=== PATIENT | female | born 1960 | race Caucasian/White ===

== ENCOUNTER 2017-03-06 19:56 | Inpatient (IN) | payer BC ==
[2017-03-06 22:28] LABS: Band 19 % (5-11); Hemoglobin 14.9 g/dL (12.0-16.0); Lymphocytes 2 % (21-51); MDiff Complete? YES; Mean Corpuscular HGB CONC 32.5 g/dL (32.0-36.0); Mean Platelet Volume 8.3 fL (7.4-10.4); Monocytes 1 % (0-10); Neutrophil 78 % (42-75); PLT Morphology Comment Appears Adequate; Platelet Count 230 thou/uL (130-400); RBC Distribution Width 11.9 % (11.5-14.5); Red Blood Cell (RBC) Count 4.38 mill/uL (4.20-5.40); White Blood Cell (WBC) Count 14.3 thou/uL (4.8-10.8)
[2017-03-06 22:31] LABS: ALT (SGPT) 30 U/L (8-55); AST (SGOT) 50 U/L (5-34); Albumin 4.2 g/dL (3.5-5.0); Alkaline Phosphatase 68 U/L (40-150); Anion Gap 15 mmol/L (10-20); BUN (Urea Nitrogen) 11 mg/dL (9.8-20.1); Bilirubin, Total 0.6 mg/dL (0.2-1.2); Calc. Creatinine Clearance 0 mL/min (70-130); Calcium 9.8 mg/dL (7.8-10.44); Carbon Dioxide 29 mmol/L (22-29); Chloride 96 mmol/L (98-107); Estimated GFR-MDRD 77; Globulin 3.6 g/dL (2.4-3.5); Glucose 163 mg/dL (70-105); Potassium 3.9 mmol/L (3.5-5.1); Protein, Total 7.8 g/dL (6.0-8.3); Sodium 136 mmol/L (136-145)
[2017-03-06] MEDS ORDERED: Albuterol Sulfate 2.5 mg/3 ml Neb NEB PRN (23:44)
[2017-03-06] MEDS ORDERED: Acetaminophen 325 MG TAB PO PRN (23:44)
[2017-03-07 00:06] VITALS: BMI 35.6
[2017-03-07] MEDS: Albuterol Sulfate 2.5 mg/3 ml Neb NEB SCH ×2 (02:11→08:39)
[2017-03-07] MEDS ORDERED: Benzonatate 100 MG CAP PO PRN (04:23)
[2017-03-07] MEDS ORDERED: Bisacodyl 5 MG TAB PO PRN (09:12)
[2017-03-07] MEDS ORDERED: Ondansetron ODT 4 MG TAB PO PRN (09:12)
[2017-03-07] MEDS ORDERED: Guaifenesin DM 100-10/5 ML UDCUP PO PRN (09:12)
[2017-03-07] MEDS ORDERED: Senokot 8.6 MG TAB PO PRN (09:12)
[2017-03-07] MEDS ORDERED: Ondansetron HCl/PF 4 MG/2 ML Vial IVP PRN (09:12)
[2017-03-07] MEDS ORDERED: Sodium Chloride 0.9% 1,000 ML IV SCH (09:15)
[2017-03-07] MEDS ORDERED: Oseltamivir 75 MG CAP PO SCH (11:30)
[2017-03-07 14:08] LABS: Lactic Acid 2.2 mmol/L (0.5-2.2)
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
[2017-03-07 17:09] LABS: Bilirubin Negative (Negative); Blood, Urine Trace (Negative); Clarity CLEAR (Clear); Glucose, Urine (Dipstick) Negative (Negative); Leukocyte Small (Negative); Nitrite Negative (Negative); Protein, Urine (Dipstick) Negative (Neg-Trace); Specific Gravity, Urine 1.016 (1.002-1.036)
[2017-03-07 17:11] LABS: Bacteria/HPF None Seen HPF (None Seen); Hyaline Casts/LPF 0-3 HYALINE CAST LPF (0-3 Hyaline); RBC/HPF 0-3 HPF (0-3); Squamous Epithelial 0-3 HPF (0-3)
[2017-03-07 17:24] LABS: Strep pneumo Urine Ag NEGATIVE (NEGATIVE)
[2017-03-07] MEDS: Mometasone/Formoterol 120 PUFF INHALER INH SCH (20:42)
[2017-03-07] MEDS ORDERED: Non-Formulary Item 1 EACH (Budesonide-Formoterol [Symbicort 160-4.5] 2 PUFF) INH SCH (21:00)
[2017-03-07] MEDS: Atorvastatin Calcium 10 MG TAB PO SCH (21:37)
[2017-03-07] MEDS: guaiFENesin ER 600 MG TAB PO SCH (21:37)
[2017-03-07] MEDS: Oseltamivir 75 MG CAP PO SCH (21:37)
[2017-03-07] MEDS: Famotidine/PF 20 mg/2ml Vial SLOW IVP SCH (21:38)
[2017-03-08 04:30] LABS: #Eosinphils 0.1 thou/uL (0.0-0.7); #Lymphocytes 1.9 thou/uL (1.20-3.40); #Monocytes 0.8 thou/uL (0.11-0.59); #Neutrophils 6.3 thou/uL (1.40-6.50); %Basophils 0.5 % (0.0-1.0); %Eosinophils 1.1 % (0.0-10.0); %Lymphocytes 20.7 % (21.0-51.0); %Monocytes 8.5 % (0.0-10.0); %Neutrophils 69.2 % (42.0-75.0); Hemoglobin 14.6 g/dL (12.0-16.0); Mean Corpuscular HGB CONC 31.3 g/dL (32.0-36.0); Mean Corpuscular Hemoglobin 33.3 pg (27.0-31.0); Mean Platelet Volume 8.9 fL (7.4-10.4); Platelet Count 233 thou/uL (130-400); RBC Distribution Width 11.8 % (11.5-14.5); Red Blood Cell (RBC) Count 4.39 mill/uL (4.20-5.40); White Blood Cell (WBC) Count 9.1 thou/uL (4.8-10.8)
[2017-03-08 04:54] LABS: Anion Gap 11 mmol/L (10-20); BUN (Urea Nitrogen) 11 mg/dL (9.8-20.1); Calc. Creatinine Clearance 111 mL/min (70-130); Calcium 9.4 mg/dL (7.8-10.44); Carbon Dioxide 36 mmol/L (22-29); Chloride 96 mmol/L (98-107); Estimated GFR-MDRD 77; Glucose 112 mg/dL (70-105); Potassium 4.1 mmol/L (3.5-5.1); Sodium 139 mmol/L (136-145)
[2017-03-08] MEDS: Levothyroxine Sodium 112 MCG TAB PO SCH (05:53)
[2017-03-08] MEDS: Mometasone/Formoterol 120 PUFF INHALER INH SCH ×2 (07:21→18:52)
[2017-03-08] MEDS: FLUoxetine HCl 20 MG CAP PO SCH (08:33)
[2017-03-08] MEDS: Enoxaparin Sodium 40 MG/0.4 ML SYRINGE SC SCH (08:34)
[2017-03-08] MEDS: guaiFENesin ER 600 MG TAB PO SCH ×2 (08:34→20:09)
[2017-03-08] MEDS: Famotidine/PF 20 mg/2ml Vial SLOW IVP SCH ×2 (08:34→20:10)
[2017-03-08] MEDS: buPROPion HCl 100 MG TAB PO SCH (09:17)
[2017-03-08] MEDS: Oseltamivir 75 MG CAP PO SCH ×2 (09:17→20:09)
--- NOTE | 2017-03-08 10:07 | PDOC.PN ---
- Subjective Encounter Start Date: 03/08/17 Encounter Start Time: 09:30 Patient is seen today, alert and oriented. No other concern snoted. She is congested but feels is getting better, She is still on Nasal canula. increased cough overnight. - Objective Resuscitation Status: Resuscitation Status FULL:Full Resuscitation MAR Reviewed: Yes Vital Signs & Weight: Vital Signs (12 hours) Temp Pulse Resp BP Pulse Ox 03/08/17 07:32 98.6 F 68 18 114/61 90 L 03/08/17 07:21 79 16 92 L 03/08/17 04:00 98.8 F 81 20 125/67 95 03/08/17 00:00 98.6 F 84 20 134/71 91 L Weight Weight 195 lb I&O: 03/07/17 03/08/17 03/09/17 06:59 06:59 06:59 Intake Total 600 480 Balance 600 480 Result Diagrams: 03/08/17 04:05 03/08/17 04:05 Phys Exam - Physical Examination HEENT: PERRLA, oral pharynx no lesions Neck: no nodes, no JVD Respiratory: wheezing present (severe broncoconstrition noted, reduced air entry.) Cardiovascular: RRR, no significant murmur Gastrointestinal: soft, non-tender Musculoskeletal: no edema, pulses present Neurological: non-focal, normal sensation Lymphatic: no nodes Psychiatric: normal affect, A&O x 3 Skin: no rash, normal turgor Dx/Plan (1) Acute respiratory failure with hypoxia Code(s): J96.01 - ACUTE RESPIRATORY FAILURE WITH HYPOXIA Status: Acute Plan: COntinue with NC, will wean off oxygen as tolereted will keep Sats>92%, Will closley Monitor for any decompensation. (2) Acute exacerbation of chronic obstructive pulmonary disease (COPD) Code(s): J44.1 - CHRONIC OBSTRUCTIVE PULMONARY DISEASE W (ACUTE) EXACERBATION Status: Acute Plan: Patient is on IV Levofloxacin, Continous Neb treatment with Duonebs and PRN albuteral, Will continue with Mucinex, pt unable to cough up much, will do Acapella q 6hrs through RT. Will need to start her on Solumedrol 40mg q 6hr for severe broncoconstruition from COPD worsening,. (3) Sepsis Code(s): A41.9 - SEPSIS, UNSPECIFIED ORGANISM Status: Acute Qualifiers: Sepsis type: sepsis due to unspecified organism Qualified Code(s): A41.9 - Sepsis, unspecified organism Plan: Laly is on IV antibiotics and on Tamiflu for influeneza infection. Sepsis is improving with above management. (4) Acute UTI Code(s): N39.0 - URINARY TRACT INFECTION, SITE NOT SPECIFIED Status: Acute Plan: Urine culture pending, patient is on levofloxacin for emperic pneumonia, will continue to monitor and wait for culture results. No pyelonephritis. (5) Hypertension Code(s): I10 - ESSENTIAL (PRIMARY) HYPERTENSION Status: Acute Qualifiers: Hypertension type: essential hypertension Qualified Code(s): I10 - Essential (primary) hypertension Plan: [place], Continue to Monitor, continue home MEds. (6) Hypothyroidism Code(s): E03.9 - HYPOTHYROIDISM, UNSPECIFIED Status: Acute Qualifiers: Hypothyroidism type: acquired Qualified Code(s): E03.9 - Hypothyroidism, unspecified Plan: Continue home meds. [place]. - Plan cont current plan of care, continue antibiotics, PT/OT, respiratory therapy, incentive spirometry, out of bed/ambulate, DVT proph w/lovenox * . Review of Systems - Review of Systems Constitutional: weakness. negative: fever, chills, sweats, malaise, other Eyes: negative: Pain, Vision Change, Conjunctivae Inflammation, Eyelid Inflammation, Redness, Other ENT: negative: Ear Pain, Ear Discharge, Nose Pain, Nose Discharge, Nose Congestion, Mouth Pain, Mouth Swelling, Throat Pain, Throat Swelling, Other Respiratory: Cough, Shortness of Breath, SOB with Excertion, Wheezing Cardiovascular: negative: chest pain, palpitations, orthopnea, paroxysmal nocturnal dyspnea, edema, light headedness, other Gastrointestinal: negative: Nausea, Vomiting, Abdominal Pain, Diarrhea, Constipation, Melena, Hematochezia, Other Genitourinary: negative: Dysuria, Frequency, Incontinence, Hematuria, Retention , Other Musculoskeletal: Neck Pain, Shoulder Pain, Arm Pain, Back Pain, Leg Pain, Other Skin: negative: Rash, Lesions, Jim, Bruising, Other Neurological: Weakness. negative: Numbness, Incoordination, Change in Speech, Confusion, Seizures, Other - Medications/Allergies Allergies/Adverse Reactions: Allergies Allergy/AdvReac Type Severity Reaction Status Date / Time aspirin Allergy Verified 03/07/17 00:32 codeine Allergy Verified 03/07/17 00:32 Medications: Current Medications Hydrocodone Bitart/Acetaminophen ([place] 5/325) 1 tab PO Q4H PRN PRN Reason: Moderate Pain (4-6) Albuterol/Ipratropium (Duoneb) 3 ml NEB [id number] PRN PRN Reason: SOB &/or Wheezing Last Admin: 03/07/17 20:43 Dose: 3 ml Aspirin (Aspirin Chewable) 81 mg PO DAILY [facility] Last Admin: 03/08/17 08:33 Dose: 81 mg Atorvastatin Calcium (Lipitor) 10 mg PO HS [facility] Last Admin: 03/07/17 21:37 Dose: 10 mg Benzonatate (Tessalon) 200 mg PO Q4H PRN PRN Reason: Cough Last Admin: 03/07/17 11:51 Dose: 200 mg Bisacodyl (Dulcolax) 10 mg PO DAILYPRN PRN PRN Reason: Constipation Bupropion HCl (Wellbutrin) 100 mg PO DAILY [facility] Last Admin: 03/08/17 09:17 Dose: 100 mg Enoxaparin Sodium (Lovenox) 40 mg SC 0900 [facility] Last Admin: 03/08/17 08:34 Dose: 40 mg Famotidine (Pepcid) 20 mg SLOW IVP Q12HR [facility] Last Admin: 03/08/17 08:34 Dose: 20 mg Fluoxetine HCl (Prozac) 40 mg PO DAILY [facility] Last Admin: 03/08/17 08:33 Dose: 40 mg Guaifenesin (Mucinex) 1,200 mg PO Q12HR [facility] Last Admin: 03/08/17 08:34 Dose: 1,200 mg Guaifenesin/Dextromethorphan (Robitussin Dm) 15 ml PO Q4H PRN PRN Reason: Cough Levofloxacin 750 mg/ Device 150 mls @ 100 mls/hr IVPB 1000 [facility] Last Admin: 03/08/17 08:33 Dose: 150 mls Sodium Chloride (Normal Saline 0.9%) 1,000 mls @ 0 mls/hr IV .Q0M [facility] PRN Reason: As Directed Levothyroxine Sodium (Synthroid) 112 mcg PO 0600 [facility] Last Admin: 03/08/17 05:53 Dose: 112 mcg Methylprednisolone Sodium Succinate (Solu-Medrol) 40 mg IVP Q6HR [facility] Mometasone Furoate/Formoterol Fumar (Dulera 200 Mcg/5 Mcg Inhaler) 2 puff INH BID-RT [facility] Last Admin: 03/08/17 07:21 Dose: 2 puff Ondansetron HCl (Zofran Odt) 4 mg PO Q6H PRN PRN Reason: Nausea/Vomiting Ondansetron HCl (Zofran) 4 mg IVP Q6H PRN PRN Reason: Nausea/Vomiting Oseltamivir Phosphate (Tamiflu) 75 mg PO BID [facility] Stop: 03/12/17 09:01 Last Admin: 03/08/17 09:17 Dose: 75 mg Senna (Senokot) 2 tab PO HSPRN PRN PRN Reason: Constipation Sodium Chloride (Flush - Normal Saline) 10 ml IVF Q12HR [facility] Last Admin: 03/08/17 08:34 Dose: 10 ml Sodium Chloride (Flush - Normal Saline) 10 ml IVF PRN PRN PRN Reason: Saline Flush
[2017-03-08] MEDS: HYDROcodone/Acetaminophen 5/325 mg Tablet PO PRN (17:14)
[2017-03-08] MEDS: Atorvastatin Calcium 10 MG TAB PO SCH (20:09)
[2017-03-09 05:11] LABS: #Lymphocytes 0.9 thou/uL (1.20-3.40); #Monocytes 0.3 thou/uL (0.11-0.59); #Neutrophils 9.4 thou/uL (1.40-6.50); %Eosinophils 0.2 % (0.0-10.0); %Lymphocytes 8.7 % (21.0-51.0); %Monocytes 2.6 % (0.0-10.0); %Neutrophils 88.4 % (42.0-75.0); Hemoglobin 14.1 g/dL (12.0-16.0); Mean Corpuscular HGB CONC 30.7 g/dL (32.0-36.0); Mean Corpuscular Hemoglobin 32.6 pg (27.0-31.0); Mean Platelet Volume 8.8 fL (7.4-10.4); Platelet Count 271 thou/uL (130-400); RBC Distribution Width 11.6 % (11.5-14.5); Red Blood Cell (RBC) Count 4.32 mill/uL (4.20-5.40); White Blood Cell (WBC) Count 10.6 thou/uL (4.8-10.8)
[2017-03-09 05:21] LABS: Anion Gap 13 mmol/L (10-20); BUN (Urea Nitrogen) 10 mg/dL (9.8-20.1); Calc. Creatinine Clearance 116 mL/min (70-130); Calcium 9.7 mg/dL (7.8-10.44); Carbon Dioxide 34 mmol/L (22-29); Chloride 96 mmol/L (98-107); Estimated GFR-MDRD 81; Glucose 232 mg/dL (70-105); Potassium 4.3 mmol/L (3.5-5.1); Sodium 139 mmol/L (136-145)
[2017-03-09] MEDS: Levothyroxine Sodium 112 MCG TAB PO SCH (05:45)
[2017-03-09] MEDS: Mometasone/Formoterol 120 PUFF INHALER INH SCH ×2 (07:27→19:03)
[2017-03-09] MEDS: guaiFENesin ER 600 MG TAB PO SCH ×2 (08:09→20:17)
[2017-03-09] MEDS: HYDROcodone/Acetaminophen 5/325 mg Tablet PO PRN (08:09)
[2017-03-09] MEDS: FLUoxetine HCl 20 MG CAP PO SCH (08:09)
[2017-03-09] MEDS: Enoxaparin Sodium 40 MG/0.4 ML SYRINGE SC SCH (08:10)
[2017-03-09] MEDS: Famotidine/PF 20 mg/2ml Vial SLOW IVP SCH ×2 (08:10→20:17)
[2017-03-09] MEDS: buPROPion HCl 100 MG TAB PO SCH (10:07)
[2017-03-09] MEDS: Oseltamivir 75 MG CAP PO SCH ×2 (10:07→20:17)
--- NOTE | 2017-03-09 13:57 | PDOC.PN ---
- Subjective Encounter Start Date: 03/09/17 Encounter Start Time: 12:00 Merari is seen today, alert and oriened, She remains on oxygen today, Will try to Wean her off of it, Deneis any SOB now., - Objective Resuscitation Status: Resuscitation Status FULL:Full Resuscitation MAR Reviewed: Yes Vital Signs & Weight: Vital Signs (12 hours) Temp Pulse Resp BP Pulse Ox 03/09/17 08:00 98.0 F 73 18 03/09/17 07:41 98.0 F 73 18 117/69 90 L 03/09/17 07:27 77 16 96 Weight Weight 195 lb I&O: 03/08/17 03/09/17 03/10/17 06:59 06:59 06:59 Intake Total 600 2990 480 Balance 600 2990 480 Result Diagrams: 03/09/17 04:16 03/09/17 04:16 Radiology Reviewed by me: Yes Phys Exam - Physical Examination HEENT: PERRLA, moist MMs Neck: no nodes, no JVD Respiratory: wheezing present Cardiovascular: RRR, no significant murmur, no rub Gastrointestinal: soft, non-tender Musculoskeletal: no edema, pulses present Neurological: non-focal, normal sensation, moves all 4 limbs Psychiatric: normal affect, A&O x 3 Dx/Plan (1) Acute respiratory failure with hypoxia Code(s): J96.01 - ACUTE RESPIRATORY FAILURE WITH HYPOXIA Status: Acute (2) Acute exacerbation of chronic obstructive pulmonary disease (COPD) Code(s): J44.1 - CHRONIC OBSTRUCTIVE PULMONARY DISEASE W (ACUTE) EXACERBATION Status: Acute (3) Sepsis Code(s): A41.9 - SEPSIS, UNSPECIFIED ORGANISM Status: Acute Qualifiers: Sepsis type: sepsis due to unspecified organism Qualified Code(s): A41.9 - Sepsis, unspecified organism (4) Acute UTI Code(s): N39.0 - URINARY TRACT INFECTION, SITE NOT SPECIFIED Status: Acute (5) Hypertension Code(s): I10 - ESSENTIAL (PRIMARY) HYPERTENSION Status: Acute Qualifiers: Hypertension type: essential hypertension Qualified Code(s): I10 - Essential (primary) hypertension (6) Hypothyroidism Code(s): E03.9 - HYPOTHYROIDISM, UNSPECIFIED Status: Acute Qualifiers: Hypothyroidism type: acquired Qualified Code(s): E03.9 - Hypothyroidism, unspecified - Plan * . 1.Acute COPD exacerbation: 2. Acute hypoxic Resp Failure 3.Acute UTI 4. Hypertension 5. Hyperlipidemia 6. Influenza A Plan: 1. Will continue with NEb treatment Duonebs and Albuteral, Pt is Improving with Acapella, will continue. Started non IV Steroids, Will change to PO. 2. Pt remains on oxygen, will need to asses for home oxygen if unable TO Wean Off. 3. Waiting on Cultures for UTI, continue on Antibitoiics 4. Continue on Tamiflu for 5 days. 5. Blood pressures well controlled and at goal. DVT prophylaxis with lovenox. - Discharge Day Encounter end time: 12:30 Review of Systems - Review of Systems Constitutional: weakness Eyes: negative: Pain, Vision Change, Conjunctivae Inflammation, Eyelid Inflammation, Redness, Other ENT: negative: Ear Pain, Ear Discharge, Nose Pain, Nose Discharge, Nose Congestion, Mouth Pain, Mouth Swelling, Throat Pain, Throat Swelling, Other Respiratory: Cough, Shortness of Breath, SOB with Excertion Cardiovascular: negative: chest pain, palpitations, orthopnea, paroxysmal nocturnal dyspnea, edema, light headedness, other Gastrointestinal: negative: Nausea, Vomiting, Abdominal Pain, Diarrhea, Constipation, Melena, Hematochezia, Other Genitourinary: negative: Dysuria, Frequency, Incontinence, Hematuria, Retention , Other Musculoskeletal: negative: Neck Pain, Shoulder Pain, Arm Pain, Back Pain, Hand Pain, Leg Pain, Foot Pain, Other Skin: negative: Rash, Lesions, Jim, Bruising, Other Neurological: Weakness. negative: Numbness, Incoordination, Change in Speech, Confusion, Seizures, Other - Medications/Allergies Allergies/Adverse Reactions: Allergies Allergy/AdvReac Type Severity Reaction Status Date / Time aspirin Allergy Verified 03/07/17 00:32 codeine Allergy Verified 03/07/17 00:32 Medications: Current Medications Hydrocodone Bitart/Acetaminophen ([place] 5/325) 1 tab PO Q4H PRN PRN Reason: Moderate Pain (4-6) Last Admin: 03/09/17 08:09 Dose: 1 tab Albuterol/Ipratropium (Duoneb) 3 ml NEB [id number] PRN PRN Reason: SOB &/or Wheezing Last Admin: 03/08/17 13:30 Dose: 3 ml Aspirin (Aspirin Chewable) 81 mg PO DAILY [facility] Last Admin: 03/09/17 08:10 Dose: 81 mg Atorvastatin Calcium (Lipitor) 10 mg PO HS [facility] Last Admin: 03/08/17 20:09 Dose: 10 mg Benzonatate (Tessalon) 200 mg PO Q4H PRN PRN Reason: Cough Last Admin: 03/07/17 11:51 Dose: 200 mg Bisacodyl (Dulcolax) 10 mg PO DAILYPRN PRN PRN Reason: Constipation Bupropion HCl (Wellbutrin) 100 mg PO DAILY [facility] Last Admin: 03/09/17 10:07 Dose: 100 mg Enoxaparin Sodium (Lovenox) 40 mg SC 0900 [facility] Last Admin: 03/09/17 08:10 Dose: 40 mg Famotidine (Pepcid) 20 mg SLOW IVP Q12HR [facility] Last Admin: 03/09/17 08:10 Dose: 20 mg Fluoxetine HCl (Prozac) 40 mg PO DAILY [facility] Last Admin: 03/09/17 08:09 Dose: 40 mg Guaifenesin (Mucinex) 1,200 mg PO Q12HR [facility] Last Admin: 03/09/17 08:09 Dose: 1,200 mg Guaifenesin/Dextromethorphan (Robitussin Dm) 15 ml PO Q4H PRN PRN Reason: Cough Levofloxacin 750 mg/ Device 150 mls @ 100 mls/hr IVPB 1000 [facility] Last Admin: 03/09/17 08:09 Dose: 150 mls Sodium Chloride (Normal Saline 0.9%) 1,000 mls @ 0 mls/hr IV .Q0M [facility] PRN Reason: As Directed Levothyroxine Sodium (Synthroid) 112 mcg PO 0600 [facility] Last Admin: 03/09/17 05:45 Dose: 112 mcg Methylprednisolone Sodium Succinate (Solu-Medrol) 40 mg IVP Q6HR [facility] Last Admin: 03/09/17 13:21 Dose: 40 mg Mometasone Furoate/Formoterol Fumar (Dulera 200 Mcg/5 Mcg Inhaler) 2 puff INH BID-RT [facility] Last Admin: 03/09/17 07:27 Dose: 2 puff Ondansetron HCl (Zofran Odt) 4 mg PO Q6H PRN PRN Reason: Nausea/Vomiting Ondansetron HCl (Zofran) 4 mg IVP Q6H PRN PRN Reason: Nausea/Vomiting Oseltamivir Phosphate (Tamiflu) 75 mg PO BID [facility] Stop: 03/12/17 09:01 Last Admin: 03/09/17 10:07 Dose: 75 mg Senna (Senokot) 2 tab PO HSPRN PRN PRN Reason: Constipation Sodium Chloride (Flush - Normal Saline) 10 ml IVF Q12HR [facility] Last Admin: 03/09/17 08:10 Dose: 10 ml Sodium Chloride (Flush - Normal Saline) 10 ml IVF PRN PRN PRN Reason: Saline Flush
[2017-03-09] MEDS: Atorvastatin Calcium 10 MG TAB PO SCH (20:17)
[2017-03-10] MEDS: HYDROcodone/Acetaminophen 5/325 mg Tablet PO PRN (00:14)
[2017-03-10] MEDS: Levothyroxine Sodium 112 MCG TAB PO SCH (06:05)
[2017-03-10 08:54] VITALS: BP 136/68; TEMP 98.3
[2017-03-10] MEDS: Famotidine/PF 20 mg/2ml Vial SLOW IVP SCH (09:21)
[2017-03-10] MEDS: Oseltamivir 75 MG CAP PO SCH (09:22)
[2017-03-10] MEDS: buPROPion HCl 100 MG TAB PO SCH (09:22)
[2017-03-10] MEDS: FLUoxetine HCl 20 MG CAP PO SCH (09:22)
[2017-03-10] MEDS: Enoxaparin Sodium 40 MG/0.4 ML SYRINGE SC SCH (09:22)
[2017-03-10] MEDS: guaiFENesin ER 600 MG TAB PO SCH (09:25)
[2017-03-10] MEDS: Mometasone/Formoterol 120 PUFF INHALER INH SCH (11:16)
--- NOTE | 2017-03-10 15:03 | DIS ---
DATE OF ADMISSION: 03/07/2017 DATE OF DISCHARGE: 03/10/2017 ADMITTING DIAGNOSIS: Acute hypoxic respiratory failure. DISCHARGE DIAGNOSIS: Acute hypoxic respiratory failure. SECONDARY DIAGNOSES: 1. Acute influenza A infection. 2. Acute chronic obstructive pulmonary disease exacerbation. 3. Hypertension. 4. Hyperlipidemia. 5. Chronic low back pain. HISTORY OF PRESENT ILLNESS AND HOSPITAL COURSE: In brief, this is a 56-year-old morbidly obese white female with a known history of COPD. She came in with a complaint of shortness of breath and cough for the past 2-3 months, which progressively got worsened for the last 2 days, associated with fever and body aches. She was noted to have influenza A positive, even though she had an influenza vaccine this year. The patient became very hypoxic in the ER. Saturations were in 80% and was started on n ebulizer treatments. The patient was admitted initially for observation, but she went into sepsis wi th elevated white count, and the patient was started on IV antibiotics with levofloxacin. The patien t continues to maintain low oxygen saturations and was having severe wheezing. So, the patient was s tarted on oral IV steroids, Solu-Medrol as she was having a COPD exacerbation. The patient's respira tory symptoms slowly improved with the steroids and later it was changed to oral steroids and the pat ient was able to breathe on room air. The patient wanting to go home. She had no fever. Cough has improved. Increased mucus production. The patient does have a nebulizer at home and wanted to use n ebulizer treatments at home. I advised the patient to stay back at home away from work for at least 2-3 days until her breathing improves and she has no fever. The patient is discharged home in stable condition. PHYSICAL EXAMINATION: VITAL SIGNS: Blood pressure is 136/68, heart rate is 66, respiratory rate is 16, saturation 92% on r oom air. GENERAL: The patient is moderately built and moderately nourished, does not appear to be in any acut e distress. CARDIOVASCULAR: S1, S2 normal. No murmurs, no rubs, and no gallops. LUNGS: Bilateral air entry was equal. No wheezing, no crackles. ABDOMEN: Soft, nontender. No guarding and no rebound tenderness. Bowel sounds normal. MUSCULOSKELETAL: No calf tenderness. No pedal edema. No joint tenderness, no joint swelling. SKIN: No cyanosis, no erythema, no rash, no pallor. CRANIAL NERVOUS SYSTEM: Cranial nerve examination II-XII intact. No focal deficits were noted. DISCHARGE MEDICATIONS: 1. Albuterol sulfate. 2. Ibuprofen 800 mg daily. 3. DuoNeb nebulizer q.4 hours. 4. Aspirin 81 mg daily. 5. Budesonide 160/4.5 mg. 6. Symbicort, 2 puffs inhalation b.i.d. 7. Bupropion 100 mg p.o. daily. 8. Fluoxetine 40 mg daily. 9. Levothyroxine. 10. Pravastatin. 11. Levofloxacin 500 mg p.o. daily, continue for 5 more days. 12. Tamiflu, continue for 2 more days, 75 mg p.o. b.i.d. 13. Mucinex 1200 mg p.o. b.i.d., continue for 2 weeks. DISCHARGE INSTRUCTIONS: Continue activity as tolerated. Advised to follow up with primary care phys ician in 1 week. Advised to return back to work after 2-3 days or after no fever and after completin g Tamiflu dose. Continue with a general diet and advised to avoid smoking or any pet allergies. Adv ised the patient to return back to the ER if any worsening shortness of breath or fever. I spent 35 minutes with this patient on the day of discharge.
[2017-03-10] MEDS ORDERED: predniSONE 20 MG TAB PO SCH (21:00)
== END 2017-03-10 15:47 | disposition home or self-care (01) | DRG 871 ==
LOC: ERS 19:56 → OBSVTOIN 23:07 → 2SW 23:07 → T4-A 03-07 13:10
PROVIDERS: ADMIT Family Medicine; ATTEND Family Medicine
DX: A41.9 Sepsis, unspecified organism (principal); J96.01 Acute respiratory failure with hypoxia; J44.1 Chronic obstructive pulmonary disease with (acute) exacerbation; N39.0 Urinary tract infection, site not specified; E66.01 Morbid (severe) obesity due to excess calories; Z68.35 Body mass index [BMI] 35.0-35.9, adult; J10.1 Influenza due to other identified influenza virus with other respiratory manifestations; E78.5 Hyperlipidemia, unspecified; I10 Essential (primary) hypertension; M19.90 Unspecified osteoarthritis, unspecified site; G89.29 Other chronic pain; M54.5 Low back pain; F17.210 Nicotine dependence, cigarettes, uncomplicated; Z79.82 Long term (current) use of aspirin; Z79.51 Long term (current) use of inhaled steroids; Z88.6 Allergy status to analgesic agent; Z88.5 Allergy status to narcotic agent; E03.9 Hypothyroidism, unspecified
CPT/HCPCS: 36415; 80048; 80053; 81001; 83605; 85025; 87040; 87070; 87086; 87205; 87899; 89220; 94640; A4216; G8978-GP-CI; G8979-GP-CI; G8980-GP-CI; G8987-GO-CH; G8988-GO-CH; G8989-GO-CH; J1650; J1956; J2920; J7611; J7620; S0028

== ENCOUNTER 2018-05-02 09:55 | Inpatient (IN) | payer BC ==
[2018-05-02] MEDS ORDERED: Magnesium 2 GM/50 ML BAG (IN WATER) ONE (10:19)
[2018-05-02] MEDS ORDERED: Ondansetron PF 4 MG/2 ML Vial IVP PRN (12:06)
[2018-05-02] MEDS ORDERED: Ondansetron ODT 4 MG TAB SL PRN (12:06)
[2018-05-02 12:15] VITALS: BMI 32.2
[2018-05-02] MEDS ORDERED: Bisacodyl 5 MG TAB PO PRN (13:01)
[2018-05-02] MEDS ORDERED: Acetaminophen 325 MG TAB PO PRN (13:01)
[2018-05-02] MEDS ORDERED: Acetaminophen 650 MG Suppository PR PRN (13:01)
--- NOTE | 2018-05-02 15:07 | HP ---
PRIMARY CARE PROVIDER: Jaycob Quintero MD CHIEF COMPLAINT: Shortness of breath. HISTORY OF PRESENT ILLNESS: Ms. Hartman is a pleasant 57-year-old lady, who was seen at [facility] on May 02, 2018, following transfer from the emergency room at [place]. She reports that 1 week ago, she had nasal congestion, body aches, and headache. Three days ago, she developed shortness of breath. She reports shortness of breath with exertion. She also reports orthopnea. She also reports wheezing. She denies any fevers or chills. She denies any nausea or vomiting. She denies any abdominal pain. She presented to the emergency room at [place] because of ongoing shortness of breath. REVIEW OF SYSTEMS: All other systems reviewed and found to be negative. PAST MEDICAL HISTORY: Significant for chronic obstructive pulmonary disease, hypertension, dyslipidemia, osteoarthritis, and chronic low back pain. PAST SURGICAL HISTORY: section x3 and hysterectomy. PSYCHIATRIC HISTORY: Bipolar disorder. SOCIAL HISTORY: The patient reports that she was using E-cigarettes until a few days ago. Now she is smoking 2 or 3 cigarettes a day. She drinks 1 to 2 alcoholic drinks, either beer or [employer] on a daily basis. She denies any recreational drug use. FAMILY HISTORY: Cerebrovascular accident in her father. ALLERGIES: ASPIRIN AND CODEINE. CURRENT MEDICATIONS: 1. ProAir HFA 2 puffs every 4 hours as needed. 2. DuoNeb 3 mL every 4 hours as needed. 3. Aspirin 81 mg daily, unclear whether the patient is actually taking aspirin. 4. Symbicort 160/4.5 two puffs 2 times a day. 5. Wellbutrin 300 mg daily. 6. Prozac 40 mg daily. 7. Ibuprofen 800 mg daily. 8. Synthroid 112 mcg daily. 9. Pravastatin 40 mg at bedtime. REVIEW OF SYSTEMS: Ms. Hartman reportedly had room-air oxygen saturations in the low 80s at [place]. She reports that she was on home oxygen in the past, but is no longer on home oxygen. PHYSICAL EXAMINATION: GENERAL: Ms. Hartman is awake and alert, in mild respiratory distress. VITAL SIGNS: Blood pressure is 124/83, pulse 94, respiratory rate 22, and oxygen saturation 92% on 2 L of oxygen. She is afebrile. She is obese, with a BMI of 32.2. EYES: No scleral icterus. No conjunctival pallor. ENT: Moist mucosal membranes. No oropharyngeal erythema or exudates. NECK: Supple, nontender, and trachea is midline. RESPIRATORY: Accessory muscles of breathing are active. Chest wall movements are symmetric bilaterally. Lung examination reveals diffuse expiratory wheeze. CARDIOVASCULAR: S1 and S2 are heard, regular. Peripheral pulses palpable. No carotid bruit. No pericardial rub. ABDOMEN: Soft and nontender. Bowel sounds heard. No hepatomegaly. No splenomegaly. NEUROLOGIC: Cranial nerves 2 through 12 intact. Deep tendon reflexes 2+. MUSCULOSKELETAL: Power is 5/5 in all 4 extremities. SKIN: No rashes or subcutaneous nodules. LYMPHATIC: No cervical lymphadenopathy. PSYCHIATRIC: Normal mood. Normal affect. The patient is oriented to person, place, and time. LABORATORY DATA: Ms. Hartman's labs and investigations were reviewed. I reviewed her electrocardiogram, which shows normal sinus rhythm, no ST changes to suggest an acute coronary syndrome. I also reviewed her chest x-ray, which shows left midlung pulmonary infiltrate. She also has pulmonary vascular prominence. She has normal sodium, normal potassium, elevated carbon dioxide of 32, normal creatinine, mildly elevated AST of 41, normal ALT, normal alkaline phosphatase, normal total bilirubin. Normal troponin I. Normal white count, normal hemoglobin, and normal platelet count. D-dimer was less than 0.27. ASSESSMENT AND PLAN: Ms. Hartman is a pleasant 57-year-old lady, who was seen at [facility] on May 02, 2018. Her problem list includes: 1. Acute hypoxic respiratory failure: Ms. Hartman is presenting with acute hypoxic respiratory failure, most likely secondary to combination of pneumonia and chronic obstructive pulmonary disease exacerbation. She will be admitted to the hospital for further management. 2. Pneumonia: Likely secondary to gram-negative bacteria. She will be treated with ceftriaxone and azithromycin. We will await blood cultures. 3. Chronic obstructive pulmonary disease exacerbation: We will treat with oxygen, steroids, and bronchodilators. 4. Dyslipidemia: We will continue statin. 5. Mild depression: Stable. We will continue Prozac and Wellbutrin. 6. Tobacco abuse: The patient has been counseled regarding tobacco cessation. We will start from nicotine replacement therapy. 7. Hypothyroidism: Continue Synthroid. 8. Hypertension: Monitor vital signs and titrate antihypertensives as needed. Many thanks for allowing me to participate in your patient's care. Please feel free to contact me with any questions or concerns. LEVEL OF RISK: High. LEVEL OF COMPLEXITY: High. Job ID: [id number]
[2018-05-02] MEDS: Nicotine 7 MG PATCH TOP SCH (16:00)
[2018-05-02] MEDS: methylPREDNISolone Sod Succ 40 MG VIAL IVP SCH ×2 (18:12→23:50)
[2018-05-02] MEDS: Mometasone/Formoterol 120 PUFF INHALER INH SCH (19:12)
[2018-05-02] MEDS: FLUoxetine HCl 20 MG CAP PO SCH (20:23)
[2018-05-02] MEDS: Atorvastatin Calcium 10 MG TAB PO SCH (20:23)
[2018-05-02] MEDS: guaiFENesin/DM ER PO SCH (20:23)
[2018-05-02] MEDS: Bupropion 150 MG XL TAB PO SCH (20:24)
[2018-05-02] MEDS ORDERED: Ketorolac Tromethamine 30 MG/ML VIAL IVP SCH (20:30)
[2018-05-02] MEDS: Melatonin 3 MG TAB PO PRN (23:28)
[2018-05-03] MEDS: Levothyroxine Sodium 112 MCG TAB PO SCH (05:20)
[2018-05-03] MEDS: methylPREDNISolone Sod Succ 40 MG VIAL IVP SCH ×4 (05:20→23:03)
[2018-05-03 07:13] LABS: Hemoglobin 14.6 g/dL (12.0-16.0); Mean Corpuscular HGB CONC 29.9 g/dL (32.0-36.0); Mean Corpuscular Hemoglobin 31.7 pg (27.0-31.0); Mean Platelet Volume 9.1 fL (7.4-10.4); Platelet Count 201 thou/uL (130-400); RBC Distribution Width 12.9 % (11.5-14.5); Red Blood Cell (RBC) Count 4.62 mill/uL (4.20-5.40); White Blood Cell (WBC) Count 7.5 thou/uL (4.8-10.8)
[2018-05-03 07:20] LABS: Anion Gap 15 mmol/L (10-20); BUN (Urea Nitrogen) 9 mg/dL (9.8-20.1); Calc. Creatinine Clearance 118 mL/min (70-130); Calcium 9.2 mg/dL (7.8-10.44); Carbon Dioxide 30 mmol/L (22-29); Chloride 98 mmol/L (98-107); Estimated GFR-MDRD Greater than 90; Glucose 190 mg/dL (70-105); Potassium 4.7 mmol/L (3.5-5.1); Sodium 138 mmol/L (136-145)
[2018-05-03] MEDS: Mometasone/Formoterol 120 PUFF INHALER INH SCH ×2 (07:23→19:20)
[2018-05-03] MEDS: Enoxaparin Sodium 40 MG/0.4 ML SYRINGE SC SCH (08:10)
[2018-05-03] MEDS: cefTRIAXone\\ROCEPHIN 1 GM in Sodium Chloride 0.9% 100 ML IVPB SCH (08:10)
[2018-05-03] MEDS: guaiFENesin/DM ER PO SCH (08:10)
[2018-05-03 09:00] LABS: #Basophils 0.1 thou/uL (0.0-0.2); #Lymphocytes 0.4 thou/uL (1.20-3.40); #Monocytes 0.3 thou/uL (0.11-0.59); #Neutrophils 6.7 thou/uL (1.40-6.50); %Basophils 1.9 % (0.0-1.0); %Eosinophils 0.1 % (0.0-10.0); %Lymphocytes 5.4 % (21.0-51.0); %Monocytes 3.7 % (0.0-10.0); %Neutrophils 88.9 % (42.0-75.0); MDiff Complete? YES; Macrocytosis SLIGHT = 6-15 cells (100X) (0-5/hpf); Microcytosis SLIGHT = 6-15 cells (100X) (0-5/hpf); Ovalocytes MODERATE= 6-15 cells (100X) (0-1/hpf); Polychromasia SLIGHT = 2-3 cells (100X) (0-2/hpf)
[2018-05-03] MEDS ORDERED: Aspirin Chewable 81 MG TAB PO SCH (09:00)
[2018-05-03] MEDS ORDERED: Bupropion 150 MG XL TAB PO SCH (09:00)
[2018-05-03] MEDS ORDERED: FLUoxetine HCl 20 MG CAP PO SCH (09:00)
[2018-05-03] MEDS: Azithromycin 500 MG in Sodium Chloride 0.9% 250 ML 250 ML IVPB SCH (09:20)
--- NOTE | 2018-05-03 10:39 | PDOC.PN ---
- Subjective Encounter Start Date: 05/03/18 Encounter Start Time: 08:40 Pt seen for followup re; acute hypoxic respiratory failure. c/o cough. SOBOE is better. Not much sputum. - Objective MAR Reviewed: Yes Vital Signs & Weight: Vital Signs (12 hours) Temp Pulse Resp BP Pulse Ox 05/03/18 08:00 93 L 05/03/18 07:35 97.9 F 85 18 130/74 93 L 05/03/18 07:25 92 L 05/03/18 07:23 81 22 H 92 L 05/03/18 07:18 81 16 89 L 05/03/18 04:00 98.4 F 84 16 119/72 94 L 05/02/18 23:33 97.0 F L 94 20 146/80 H 96 05/02/18 23:27 96 16 93 L Weight Weight 176 lb 2 oz I&O: 05/02/18 05/03/18 05/04/18 06:59 06:59 06:59 Intake Total 1200 Balance 1200 Result Diagrams: 05/03/18 06:00 05/03/18 06:00 Additional Labs: labs reviewed by me Phys Exam - Physical Examination Obese HEENT: moist MMs, sclera anicteric, oral pharynx no lesions, 2+ tonsils Neck: no nodes, no JVD, supple, full ROM Respiratory: wheezing present Cardiovascular: RRR, no rub S1, S2 Gastrointestinal: soft, non-tender, no distention, positive bowel sounds Musculoskeletal: pulses present Neurological: moves all 4 limbs Psychiatric: normal affect, A&O x 3 Dx/Plan (1) Acute respiratory failure with hypoxia Code(s): J96.01 - ACUTE RESPIRATORY FAILURE WITH HYPOXIA Status: Acute Comment: secondary to pneumonia and COPD exacerbation, improving (2) Pneumonia Code(s): J18.9 - PNEUMONIA, UNSPECIFIED ORGANISM Status: Acute Comment: continue IV antibiotics as below (3) Acute exacerbation of chronic obstructive pulmonary disease (COPD) Code(s): J44.1 - CHRONIC OBSTRUCTIVE PULMONARY DISEASE W (ACUTE) EXACERBATION Status: Acute Comment: Improving with oxygen, steroids and bronchodilators. Add Mucinex. (4) Hypertension Code(s): I10 - ESSENTIAL (PRIMARY) HYPERTENSION Status: Chronic Qualifiers: Hypertension type: essential hypertension Qualified Code(s): I10 - Essential (primary) hypertension Comment: controlled (5) Hypothyroidism Code(s): E03.9 - HYPOTHYROIDISM, UNSPECIFIED Status: Chronic Qualifiers: Hypothyroidism type: acquired Qualified Code(s): E03.9 - Hypothyroidism, unspecified Comment: on synthroid - Plan continue antibiotics, out of bed/ambulate, DVT proph w/lovenox * . Review of Systems - Review of Systems Constitutional: negative: fever, chills, sweats, weakness, malaise Respiratory: Cough, Sputum. negative: Dry, Shortness of Breath, Hemoptysis, SOB with Excertion, Pleuritic Pain, Wheezing Cardiovascular: negative: chest pain, palpitations, orthopnea, paroxysmal nocturnal dyspnea, edema, light headedness Gastrointestinal: negative: Nausea, Vomiting, Abdominal Pain, Diarrhea, Constipation, Melena, Hematochezia Genitourinary: negative: Dysuria, Frequency, Incontinence, Hematuria, Retention - Medications/Allergies Allergies/Adverse Reactions: Allergies Allergy/AdvReac Type Severity Reaction Status Date / Time aspirin Allergy Nausea Verified 05/02/18 12:00 codeine Allergy Nausea Verified 05/02/18 12:00 Medications: Current Medications Acetaminophen (Tylenol) 650 mg PO Q4H PRN PRN Reason: Headache/Fever/Mild Pain (1-3) Acetaminophen (Tylenol) 650 mg DC Q4H PRN PRN Reason: Headache/Fever/Mild Pain (1-3) Albuterol/Ipratropium (Duoneb) 3 ml NEB [id number] [facility] Last Admin: 05/03/18 07:18 Dose: 3 ml Albuterol/Ipratropium (Duoneb) 3 ml NEB [id number] PRN PRN Reason: SOB &/or Wheezing Last Admin: 05/02/18 15:23 Dose: 3 ml Atorvastatin Calcium (Lipitor) 10 mg PO HS [facility] Last Admin: 05/02/18 20:23 Dose: 10 mg Bisacodyl (Dulcolax) 10 mg PO DAILYPRN PRN PRN Reason: Constipation Bupropion HCl (Wellbutrin Xl) 300 mg PO [facility] Last Admin: 05/02/18 20:24 Dose: 300 mg Enoxaparin Sodium (Lovenox) 40 mg SC 0900 [facility] Last Admin: 05/03/18 08:10 Dose: 40 mg Fluoxetine HCl (Prozac) 40 mg PO [facility] Last Admin: 05/02/18 20:23 Dose: 40 mg Guaifenesin (Mucinex) 1,200 mg PO Q12HR [facility] Guaifenesin (Mucinex) 1,200 mg PO ONE [facility] Guaifenesin/Dextromethorphan (Mucinex Dm) 1 tab PO Q12HR [facility] Last Admin: 05/03/18 08:10 Dose: 1 tab Azithromycin 500 mg/ Sodium (Chloride) 250 mls @ 250 mls/hr IVPB Q24HR [facility] Last Admin: 05/03/18 09:20 Dose: 250 mls Ceftriaxone Sodium 1 gm/ (Sodium Chloride) 100 mls @ 200 mls/hr IVPB Q24HR [facility] Last Admin: 05/03/18 08:10 Dose: 100 mls Levothyroxine Sodium (Synthroid) 112 mcg PO 0600 [facility] Last Admin: 05/03/18 05:20 Dose: 112 mcg Melatonin (Melatonin) 3 mg PO HS PRN PRN Reason: Insomnia Last Admin: 05/02/18 23:28 Dose: 3 mg Methylprednisolone Sodium Succinate (Solu-Medrol) 40 mg IVP Q6HR [facility] Last Admin: 05/03/18 05:20 Dose: 40 mg Mometasone Furoate/Formoterol Fumar (Dulera 200 Mcg/5 Mcg Inhaler) 2 puff INH BID-RT [facility] Last Admin: 05/03/18 07:23 Dose: 2 puff Nicotine (Nicoderm Patch) 7 mg TOP Q24HR [facility] Last Admin: 05/02/18 16:00 Dose: 7 mg
[2018-05-03] MEDS ORDERED: guaiFENesin ER 600 MG TAB PO SCH (10:45)
[2018-05-03] MEDS: Nicotine 7 MG PATCH TOP SCH (13:09)
[2018-05-03] MEDS: ALPRAZolam 0.25 MG TAB PO PRN (18:23)
[2018-05-03] MEDS: FLUoxetine HCl 20 MG CAP PO SCH (19:15)
[2018-05-03] MEDS: Bupropion 150 MG XL TAB PO SCH (19:15)
[2018-05-03] MEDS: Atorvastatin Calcium 10 MG TAB PO SCH (19:15)
[2018-05-03] MEDS: guaiFENesin ER 600 MG TAB PO SCH (19:15)
[2018-05-04] MEDS: Levothyroxine Sodium 112 MCG TAB PO SCH (04:50)
[2018-05-04] MEDS: methylPREDNISolone Sod Succ 40 MG VIAL IVP SCH ×4 (04:51→23:57)
[2018-05-04 06:48] LABS: Mean Corpuscular HGB CONC 29.9 g/dL (32.0-36.0); Mean Corpuscular Hemoglobin 32.2 pg (27.0-31.0); Platelet Count 245 thou/uL (130-400); RBC Distribution Width 12.7 % (11.5-14.5); Red Blood Cell (RBC) Count 4.65 mill/uL (4.20-5.40); White Blood Cell (WBC) Count 17.4 thou/uL (4.8-10.8)
[2018-05-04 06:53] LABS: Anion Gap 13 mmol/L (10-20); BUN (Urea Nitrogen) 13 mg/dL (9.8-20.1); Calc. Creatinine Clearance 114 mL/min (70-130); Calcium 9.7 mg/dL (7.8-10.44); Carbon Dioxide 35 mmol/L (22-29); Chloride 95 mmol/L (98-107); Estimated GFR-MDRD 90; Glucose 154 mg/dL (70-105); Sodium 139 mmol/L (136-145)
[2018-05-04] MEDS: Mometasone/Formoterol 120 PUFF INHALER INH SCH ×2 (07:18→19:10)
[2018-05-04 07:21] LABS: #Lymphocytes 0.8 thou/uL (1.20-3.40); #Monocytes 0.6 thou/uL (0.11-0.59); #Neutrophils 15.9 thou/uL (1.40-6.50); %Eosinophils 0.1 % (0.0-10.0); %Lymphocytes 4.8 % (21.0-51.0); %Monocytes 3.4 % (0.0-10.0); %Neutrophils 91.7 % (42.0-75.0); MDiff Complete? YES; Macrocytosis SLIGHT = 6-15 cells (100X) (0-5/hpf); Platelet Morphology Comment Appears Adequate
[2018-05-04] MEDS: cefTRIAXone\\ROCEPHIN 1 GM in Sodium Chloride 0.9% 100 ML IVPB SCH (08:34)
[2018-05-04] MEDS: guaiFENesin ER 600 MG TAB PO SCH ×2 (08:35→20:40)
[2018-05-04] MEDS: Enoxaparin Sodium 40 MG/0.4 ML SYRINGE SC SCH (08:35)
[2018-05-04] MEDS: Azithromycin 500 MG in Sodium Chloride 0.9% 250 ML 250 ML IVPB SCH (10:21)
--- NOTE | 2018-05-04 11:06 | PDOC.PN ---
- Subjective Encounter Start Date: 05/04/18 Encounter Start Time: 08:20 Pt seen for followup re: acute hypoxic respiratory failure. Feels slightly better. Cough+, not much sputum. - Objective MAR Reviewed: Yes Vital Signs & Weight: Vital Signs (12 hours) Temp Pulse Resp BP BP Pulse Ox 05/04/18 08:28 148/89 H 94 L 05/04/18 07:29 97.8 F 93 20 148/89 H 94 L 05/04/18 07:18 90 L 05/04/18 07:15 90 20 90 L 05/04/18 04:00 98.4 F 87 18 132/92 H 132/92 H 91 L 05/03/18 23:25 98.7 F 93 22 H 149/73 H 149/73 H 90 L 05/03/18 23:16 111 H 20 Weight Weight 176 lb 2 oz I&O: 05/03/18 05/04/18 05/05/18 06:59 06:59 06:59 Intake Total 1200 720 Balance 1200 720 Result Diagrams: 05/04/18 05:57 05/04/18 05:57 Additional Labs: Labs reviewed by me Phys Exam - Physical Examination Obese HEENT: moist MMs Neck: supple Respiratory: clear to auscultation bilateral Cardiovascular: RRR Gastrointestinal: soft Neurological: moves all 4 limbs Psychiatric: normal affect Dx/Plan (1) Acute respiratory failure with hypoxia Code(s): J96.01 - ACUTE RESPIRATORY FAILURE WITH HYPOXIA Status: Acute Comment: improving (2) Pneumonia Code(s): J18.9 - PNEUMONIA, UNSPECIFIED ORGANISM Status: Acute Comment: continue IV ceftriaxone and azithromycin (3) Acute exacerbation of chronic obstructive pulmonary disease (COPD) Code(s): J44.1 - CHRONIC OBSTRUCTIVE PULMONARY DISEASE W (ACUTE) EXACERBATION Status: Acute Comment: Improving with oxygen, steroids and bronchodilators (4) Hypertension Code(s): I10 - ESSENTIAL (PRIMARY) HYPERTENSION Status: Chronic Qualifiers: Hypertension type: essential hypertension Qualified Code(s): I10 - Essential (primary) hypertension Comment: controlled (5) Hypothyroidism Code(s): E03.9 - HYPOTHYROIDISM, UNSPECIFIED Status: Chronic Qualifiers: Hypothyroidism type: acquired Qualified Code(s): E03.9 - Hypothyroidism, unspecified Comment: on synthroid - Plan * . Review of Systems - Review of Systems Respiratory: Cough. negative: Dry, Shortness of Breath, Hemoptysis, SOB with Excertion, Pleuritic Pain, Sputum, Wheezing Cardiovascular: negative: chest pain, palpitations, orthopnea, paroxysmal nocturnal dyspnea, edema, light headedness - Medications/Allergies Allergies/Adverse Reactions: Allergies Allergy/AdvReac Type Severity Reaction Status Date / Time aspirin Allergy Nausea Verified 05/02/18 12:00 codeine Allergy Nausea Verified 05/02/18 12:00 Medications: Current Medications Acetaminophen (Tylenol) 650 mg PO Q4H PRN PRN Reason: Headache/Fever/Mild Pain (1-3) Acetaminophen (Tylenol) 650 mg TN Q4H PRN PRN Reason: Headache/Fever/Mild Pain (1-3) Albuterol/Ipratropium (Duoneb) 3 ml NEB [id number] [facility] Last Admin: 05/04/18 07:15 Dose: 3 ml Albuterol/Ipratropium (Duoneb) 3 ml NEB [id number] PRN PRN Reason: SOB &/or Wheezing Last Admin: 05/02/18 15:23 Dose: 3 ml Alprazolam (Xanax) 0.25 mg PO BID PRN PRN Reason: Anxiety Last Admin: 05/03/18 18:23 Dose: 0.25 mg Atorvastatin Calcium (Lipitor) 10 mg PO HS [facility] [place] Last Admin: 05/03/18 19:15 Dose: 10 mg Bisacodyl (Dulcolax) 10 mg PO DAILYPRN PRN PRN Reason: Constipation Bupropion HCl (Wellbutrin Xl) 300 mg PO [facility] Last Admin: 05/03/18 19:15 Dose: 300 mg Enoxaparin Sodium (Lovenox) 40 mg SC 0900 [facility] Last Admin: 05/04/18 08:35 Dose: 40 mg Fluoxetine HCl (Prozac) 40 mg PO HS [facility] [place] Last Admin: 05/03/18 19:15 Dose: 40 mg Guaifenesin (Mucinex) 1,200 mg PO Q12HR [facility] Last Admin: 05/04/18 08:35 Dose: 1,200 mg Azithromycin 500 mg/ Sodium (Chloride) 250 mls @ 250 mls/hr IVPB Q24HR [facility] [place] Last Admin: 05/04/18 10:21 Dose: 250 mls Ceftriaxone Sodium 1 gm/ (Sodium Chloride) 100 mls @ 200 mls/hr IVPB Q24HR [facility] [place] Last Admin: 05/04/18 08:34 Dose: 100 mls Levothyroxine Sodium (Synthroid) 112 mcg PO 0600 [facility] Last Admin: 05/04/18 04:50 Dose: 112 mcg Melatonin (Melatonin) 3 mg PO HS PRN PRN Reason: Insomnia Last Admin: 05/02/18 23:28 Dose: 3 mg Methylprednisolone Sodium Succinate (Solu-Medrol) 40 mg IVP Q6HR [facility] [place] Last Admin: 05/04/18 04:51 Dose: 40 mg Mometasone Furoate/Formoterol Fumar (Dulera 200 Mcg/5 Mcg Inhaler) 2 puff INH BID-RT [facility] [place] Last Admin: 05/04/18 07:18 Dose: 2 puff Nicotine (Nicoderm Patch) 7 mg TOP Q24HR [facility] Last Admin: 05/03/18 13:09 Dose: Not Given
[2018-05-04] MEDS: ALPRAZolam 0.25 MG TAB PO PRN (12:32)
[2018-05-04] MEDS: Nicotine 7 MG PATCH TOP SCH (16:30)
[2018-05-04] MEDS: FLUoxetine HCl 20 MG CAP PO SCH (20:40)
[2018-05-04] MEDS: Bupropion 150 MG XL TAB PO SCH (20:40)
[2018-05-04] MEDS: Atorvastatin Calcium 10 MG TAB PO SCH (20:40)
[2018-05-05] MEDS: methylPREDNISolone Sod Succ 40 MG VIAL IVP SCH ×4 (05:38→22:55)
[2018-05-05] MEDS: Levothyroxine Sodium 112 MCG TAB PO SCH (05:38)
[2018-05-05] MEDS: ALPRAZolam 0.25 MG TAB PO PRN ×2 (06:20→20:24)
[2018-05-05 07:02] LABS: Anion Gap 15 mmol/L (10-20); BUN (Urea Nitrogen) 15 mg/dL (9.8-20.1); Calc. Creatinine Clearance 118 mL/min (70-130); Calcium 9.2 mg/dL (7.8-10.44); Carbon Dioxide 33 mmol/L (22-29); Chloride 95 mmol/L (98-107); Estimated GFR-MDRD Greater than 90; Glucose 115 mg/dL (70-105); Potassium 3.9 mmol/L (3.5-5.1); Sodium 139 mmol/L (136-145)
[2018-05-05] MEDS: Mometasone/Formoterol 120 PUFF INHALER INH SCH ×2 (07:08→19:38)
[2018-05-05 08:22] LABS: #Lymphocytes 0.6 thou/uL (1.20-3.40); #Monocytes 0.6 thou/uL (0.11-0.59); #Neutrophils 13.4 thou/uL (1.40-6.50); %Basophils 0.1 % (0.0-1.0); %Eosinophils 0.2 % (0.0-10.0); %Monocytes 3.8 % (0.0-10.0); %Neutrophils 91.9 % (42.0-75.0); Hemoglobin 14.3 g/dL (12.0-16.0); MDiff Complete? YES; Macrocytosis SLIGHT = 6-15 cells (100X) (0-5/hpf); Mean Corpuscular HGB CONC 29.9 g/dL (32.0-36.0); Mean Corpuscular Hemoglobin 31.7 pg (27.0-31.0); Mean Platelet Volume 8.8 fL (7.4-10.4); Platelet Count 262 thou/uL (130-400); Platelet Morphology Comment Appears Adequate; RBC Distribution Width 12.4 % (11.5-14.5); Red Blood Cell (RBC) Count 4.52 mill/uL (4.20-5.40); White Blood Cell (WBC) Count 14.6 thou/uL (4.8-10.8)
[2018-05-05] MEDS: cefTRIAXone\\ROCEPHIN 1 GM in Sodium Chloride 0.9% 100 ML IVPB SCH (08:27)
[2018-05-05] MEDS: guaiFENesin ER 600 MG TAB PO SCH ×2 (08:28→20:24)
[2018-05-05] MEDS: Enoxaparin Sodium 40 MG/0.4 ML SYRINGE SC SCH (08:28)
[2018-05-05] MEDS: Azithromycin 500 MG in Sodium Chloride 0.9% 250 ML 250 ML IVPB SCH (09:04)
--- NOTE | 2018-05-05 09:40 | PDOC.PN ---
- Subjective Encounter Start Date: 05/05/18 Encounter Start Time: 09:39 still feeling SOB. Has some mile sputum production. Estimates she is about 40 % back to baseline. - Objective Vital Signs & Weight: Vital Signs (12 hours) Temp Pulse Resp BP BP Pulse Ox 05/05/18 07:24 98 F 84 24 H 150/78 H 91 L 05/05/18 06:52 94 L 05/05/18 06:50 88 16 94 L 05/05/18 04:00 98 F 102 H 18 149/82 H 149/82 H 93 L 05/05/18 00:25 97 20 95 05/05/18 00:00 98.1 F 97 18 153/80 H 153/80 H 92 L Weight Weight 176 lb 2 oz I&O: 05/04/18 05/05/18 05/06/18 06:59 06:59 06:59 Intake Total 720 2270 Balance 720 2270 Result Diagrams: 05/05/18 05:24 05/05/18 05:24 Phys Exam - Physical Examination Constitutional: NAD exp wheezes. Diminshed Cardiovascular: RRR, no significant murmur, no rub Gastrointestinal: soft, non-tender, no distention Musculoskeletal: no edema Neurological: non-focal Psychiatric: normal affect, A&O x 3 Dx/Plan (1) Pneumonia Code(s): J18.9 - PNEUMONIA, UNSPECIFIED ORGANISM Status: Acute Comment: continue IV ceftriaxone and azithromycin (2) Acute exacerbation of chronic obstructive pulmonary disease (COPD) Code(s): J44.1 - CHRONIC OBSTRUCTIVE PULMONARY DISEASE W (ACUTE) EXACERBATION Status: Acute Comment: Improving with oxygen, steroids and bronchodilators (3) Acute respiratory failure with hypoxia Code(s): J96.01 - ACUTE RESPIRATORY FAILURE WITH HYPOXIA Status: Acute Comment: improving (4) Hypertension Code(s): I10 - ESSENTIAL (PRIMARY) HYPERTENSION Status: Chronic Qualifiers: Hypertension type: essential hypertension Qualified Code(s): I10 - Essential (primary) hypertension Comment: controlled (5) Hypothyroidism Code(s): E03.9 - HYPOTHYROIDISM, UNSPECIFIED Status: Chronic Qualifiers: Hypothyroidism type: acquired Qualified Code(s): E03.9 - Hypothyroidism, unspecified Comment: on synthroid (6) Macrocytosis without anemia Code(s): D75.89 - OTHER SPECIFIED DISEASES OF BLOOD AND BLOOD-FORMING ORGANS Status: Acute - Plan * Continue Steroids, oxygen, nebs. * Continue abx. * Add probiotics. * CT chest. * Continue Lovenox. * Home meds for htn and thyroid. * B12 and Folate.
--- NOTE | 2018-05-05 11:45 | CT ---
CT CHEST WITHOUT CONTRAST: HISTORY: COPD and pneumonia. COMPARISON: None. TECHNIQUE: Multiple contiguous axial images were obtained in a CT of the chest without contrast. Coronal reform ats were performed. FINDINGS: Emphysematous changes are seen in the lung apices. There are areas of ground glass attenuation in th e lingula, which may represent either scarring or early infiltrates. No cory consolidation is seen. No suspicious pulmonary nodule is present. No pneumothorax or pleural effusion is seen. The heart is normal in size without focal cardiac abnormality. No hilar or mediastinal lymphadenopat hy is appreciated on this limited noncontrast examination. The visualized subdiaphragmatic structures are unremarkable. The chest wall soft tissues are unremar kable. Degenerative changes are seen in the spine. IMPRESSION: 1. Emphysema. 2. Possible early lingular infiltrate. POS: [facility]
[2018-05-05] MEDS: Nicotine 7 MG PATCH TOP SCH (14:15)
--- NOTE | 2018-05-05 17:27 | PDOC.PN ---
- Subjective Encounter Start Date: 05/05/18 Encounter Start Time: 10:00 Doing better, but still with SOB. Still has some wheezing. - Objective Vital Signs & Weight: Vital Signs (12 hours) Temp Pulse Resp BP BP Pulse Ox 05/05/18 12:41 88 16 93 L 05/05/18 08:00 150/78 H 91 L 05/05/18 07:24 98 F 84 24 H 150/78 H 91 L 05/05/18 06:52 94 L 05/05/18 06:50 88 16 94 L Weight Weight 176 lb 2 oz I&O: 05/04/18 05/05/18 05/06/18 06:59 06:59 06:59 Intake Total 720 2270 480 Balance 720 2270 480 Result Diagrams: 05/05/18 05:24 05/05/18 05:24 Phys Exam - Physical Examination Constitutional: NAD Scattered wheezes. Significantly increased with forced expiration. Cardiovascular: RRR, no significant murmur Gastrointestinal: soft, non-tender, no distention, positive bowel sounds Musculoskeletal: no edema Neurological: non-focal Psychiatric: normal affect, A&O x 3 Dx/Plan (1) Pneumonia Code(s): J18.9 - PNEUMONIA, UNSPECIFIED ORGANISM Status: Acute Comment: continue IV ceftriaxone and azithromycin (2) Acute exacerbation of chronic obstructive pulmonary disease (COPD) Code(s): J44.1 - CHRONIC OBSTRUCTIVE PULMONARY DISEASE W (ACUTE) EXACERBATION Status: Acute Comment: Improving with oxygen, steroids and bronchodilators (3) Acute respiratory failure with hypoxia Code(s): J96.01 - ACUTE RESPIRATORY FAILURE WITH HYPOXIA Status: Acute Comment: improving (4) Hypertension Code(s): I10 - ESSENTIAL (PRIMARY) HYPERTENSION Status: Chronic Qualifiers: Hypertension type: essential hypertension Qualified Code(s): I10 - Essential (primary) hypertension Comment: controlled (5) Hypothyroidism Code(s): E03.9 - HYPOTHYROIDISM, UNSPECIFIED Status: Chronic Qualifiers: Hypothyroidism type: acquired Qualified Code(s): E03.9 - Hypothyroidism, unspecified Comment: on synthroid (6) Macrocytosis without anemia Code(s): D75.89 - OTHER SPECIFIED DISEASES OF BLOOD AND BLOOD-FORMING ORGANS Status: Acute - Plan * CT was negative for neoplasm. Patient made aware..
[2018-05-05] MEDS: Atorvastatin Calcium 10 MG TAB PO SCH (20:24)
[2018-05-05] MEDS: Bupropion 150 MG XL TAB PO SCH (20:24)
[2018-05-05] MEDS: FLUoxetine HCl 20 MG CAP PO SCH (20:24)
[2018-05-05] MEDS: Saccharomyces boulardii 250 MG CAP PO SCH (20:24)
[2018-05-06] MEDS: methylPREDNISolone Sod Succ 40 MG VIAL IVP SCH ×3 (05:52→17:54)
[2018-05-06] MEDS: Levothyroxine Sodium 112 MCG TAB PO SCH (05:52)
[2018-05-06 06:51] LABS: Folate (Folic Acid) 5.7 ng/mL (7.0-31.4)
[2018-05-06] MEDS: Mometasone/Formoterol 120 PUFF INHALER INH SCH ×2 (07:44→18:58)
[2018-05-06] MEDS: ALPRAZolam 0.25 MG TAB PO PRN ×2 (08:53→21:42)
[2018-05-06] MEDS: guaiFENesin ER 600 MG TAB PO SCH ×2 (08:53→21:38)
[2018-05-06] MEDS: cefTRIAXone\\ROCEPHIN 1 GM in Sodium Chloride 0.9% 100 ML IVPB SCH (08:53)
[2018-05-06] MEDS: Saccharomyces boulardii 250 MG CAP PO SCH ×2 (08:53→21:39)
[2018-05-06] MEDS: Enoxaparin Sodium 40 MG/0.4 ML SYRINGE SC SCH (08:54)
[2018-05-06] MEDS: Nicotine 7 MG PATCH TOP SCH (08:55)
[2018-05-06] MEDS: Azithromycin 500 MG in Sodium Chloride 0.9% 250 ML 250 ML IVPB SCH (10:05)
[2018-05-06] MEDS: Atorvastatin Calcium 10 MG TAB PO SCH (21:38)
[2018-05-06] MEDS: Bupropion 150 MG XL TAB PO SCH (21:39)
[2018-05-06] MEDS: FLUoxetine HCl 20 MG CAP PO SCH (21:39)
--- NOTE | 2018-05-06 22:53 | PDOC.PN ---
- Subjective Encounter Start Date: 05/06/18 Encounter Start Time: 10:15 Feeling better. About 60% of normal. Breathing a little better. - Objective Vital Signs & Weight: Vital Signs (12 hours) Temp Pulse Resp BP BP Pulse Ox 05/06/18 20:00 98.7 F 90 18 148/82 H 95 05/06/18 19:00 93 18 91 L 05/06/18 18:58 93 18 91 L 05/06/18 16:00 143/84 H 05/06/18 15:54 98.6 F 88 17 143/84 H 92 L 05/06/18 12:52 90 20 93 L 05/06/18 12:00 155/80 H 05/06/18 11:31 98 F 85 17 155/80 H 92 L Weight Weight 176 lb 2 oz I&O: 05/05/18 05/06/18 05/07/18 06:59 06:59 06:59 Intake Total 2270 2160 660 Balance 2270 2160 660 Result Diagrams: 05/05/18 05:24 05/05/18 05:24 Phys Exam - Physical Examination Constitutional: NAD Wheezing. Improved. Cardiovascular: RRR, no significant murmur Gastrointestinal: soft, non-tender, no distention Musculoskeletal: no edema Neurological: non-focal Psychiatric: normal affect, A&O x 3 Dx/Plan (1) Pneumonia Code(s): J18.9 - PNEUMONIA, UNSPECIFIED ORGANISM Status: Acute Comment: continue IV ceftriaxone and azithromycin (2) Acute exacerbation of chronic obstructive pulmonary disease (COPD) Code(s): J44.1 - CHRONIC OBSTRUCTIVE PULMONARY DISEASE W (ACUTE) EXACERBATION Status: Acute Comment: Improving with oxygen, steroids and bronchodilators (3) Acute respiratory failure with hypoxia Code(s): J96.01 - ACUTE RESPIRATORY FAILURE WITH HYPOXIA Status: Acute Comment: improving (4) Hypertension Code(s): I10 - ESSENTIAL (PRIMARY) HYPERTENSION Status: Chronic Qualifiers: Hypertension type: essential hypertension Qualified Code(s): I10 - Essential (primary) hypertension Comment: controlled (5) Hypothyroidism Code(s): E03.9 - HYPOTHYROIDISM, UNSPECIFIED Status: Chronic Qualifiers: Hypothyroidism type: acquired Qualified Code(s): E03.9 - Hypothyroidism, unspecified Comment: on synthroid (6) Macrocytosis without anemia Code(s): D75.89 - OTHER SPECIFIED DISEASES OF BLOOD AND BLOOD-FORMING ORGANS Status: Acute - Plan * Doing better. Continue current plan with abx, nebs, steroids.
[2018-05-07] MEDS: methylPREDNISolone Sod Succ 40 MG VIAL IVP SCH ×3 (00:21→14:45)
[2018-05-07] MEDS: Levothyroxine Sodium 112 MCG TAB PO SCH (06:09)
[2018-05-07] MEDS: Nicotine 7 MG PATCH TOP SCH (07:16)
[2018-05-07] MEDS: Mometasone/Formoterol 120 PUFF INHALER INH SCH ×2 (07:53→18:59)
[2018-05-07] MEDS: guaiFENesin ER 600 MG TAB PO SCH ×2 (08:43→20:15)
[2018-05-07] MEDS: cefTRIAXone\\ROCEPHIN 1 GM in Sodium Chloride 0.9% 100 ML IVPB SCH (08:43)
[2018-05-07] MEDS: Saccharomyces boulardii 250 MG CAP PO SCH ×2 (08:43→20:15)
[2018-05-07] MEDS: ALPRAZolam 0.25 MG TAB PO PRN ×2 (08:43→20:15)
[2018-05-07] MEDS: Enoxaparin Sodium 40 MG/0.4 ML SYRINGE SC SCH (08:43)
[2018-05-07] MEDS: Azithromycin 500 MG in Sodium Chloride 0.9% 250 ML 250 ML IVPB SCH (09:59)
[2018-05-07] MEDS ORDERED: predniSONE 20 MG TAB PO SCH (14:30)
--- NOTE | 2018-05-07 15:36 | PDOC.PN ---
- Subjective Encounter Start Date: 05/07/18 Encounter Start Time: 12:40 Feeling better. Feels like she is at 70% of her baseline. Minimal cough. Would like to consider going home. - Objective Vital Signs & Weight: Vital Signs (12 hours) Temp Pulse Resp BP BP Pulse Ox 05/07/18 13:34 77 22 H 87 L 05/07/18 12:00 98.6 F 77 20 162/97 H 92 L 05/07/18 08:00 98.2 F 93 18 185/99 H 185/99 H 90 L 05/07/18 07:50 90 20 95 Weight Weight 176 lb 2 oz I&O: 05/06/18 05/07/18 05/08/18 06:59 06:59 06:59 Intake Total 2160 1400 360 Balance 2160 1400 360 Result Diagrams: 05/05/18 05:24 05/05/18 05:24 Phys Exam - Physical Examination Constitutional: NAD Obese Neck: no JVD Very modest scattered rales, wheezes. Improved. Diminished. Cardiovascular: RRR, no significant murmur Gastrointestinal: soft, non-tender, no distention, positive bowel sounds Musculoskeletal: no edema Psychiatric: normal affect, A&O x 3 Dx/Plan (1) Pneumonia Code(s): J18.9 - PNEUMONIA, UNSPECIFIED ORGANISM Status: Acute Comment: continue IV ceftriaxone and azithromycin (2) Acute exacerbation of chronic obstructive pulmonary disease (COPD) Code(s): J44.1 - CHRONIC OBSTRUCTIVE PULMONARY DISEASE W (ACUTE) EXACERBATION Status: Acute Comment: Improving with oxygen, steroids and bronchodilators (3) Acute respiratory failure with hypoxia Code(s): J96.01 - ACUTE RESPIRATORY FAILURE WITH HYPOXIA Status: Acute Comment: improving (4) Hypertension Code(s): I10 - ESSENTIAL (PRIMARY) HYPERTENSION Status: Chronic Qualifiers: Hypertension type: essential hypertension Qualified Code(s): I10 - Essential (primary) hypertension Comment: controlled (5) Hypothyroidism Code(s): E03.9 - HYPOTHYROIDISM, UNSPECIFIED Status: Chronic Qualifiers: Hypothyroidism type: acquired Qualified Code(s): E03.9 - Hypothyroidism, unspecified Comment: on synthroid (6) Macrocytosis without anemia Code(s): D75.89 - OTHER SPECIFIED DISEASES OF BLOOD AND BLOOD-FORMING ORGANS Status: Acute - Plan * Attempted to get her off oxygen and ambulating. * RASaO2 was upper 80's. Desats to upper 70's with ambulation. * She indicates she was more SOB than her baseline. * Will add Formotorol/Mometasone inhaler. * Consult Pulm. * Reviewed CT. Infiltrate is modest. * Change to PO steroids, PO Abx. * She is welcoming of the idea of home oxygen if that is necessary.
[2018-05-07] MEDS: Bupropion 150 MG XL TAB PO SCH (20:14)
[2018-05-07] MEDS: Melatonin 3 MG TAB PO PRN (20:14)
[2018-05-07] MEDS: FLUoxetine HCl 20 MG CAP PO SCH (20:14)
[2018-05-07] MEDS: Atorvastatin Calcium 10 MG TAB PO SCH (20:15)
--- NOTE | 2018-05-07 23:43 | CON ---
DATE OF CONSULTATION: 05/07/2018 TIME SPENT: This is 70 minutes of time, of that time, greater than 50% was spent with the patient and/or the patient's unit in the hospital. REASON FOR CONSULTATION: COPD. CONSULT REQUESTED BY: Jair Hill MD HISTORY OF PRESENT ILLNESS: The patient is a 57-year-old female who was 1st hospitalized on 05/02/2018, by the hospitalist service for increasing shortness of breath, body aches, and congestion. She does have a history of chronic obstructive pulmonary disease. She was diagnosed many years ago while living in [place]. She said her last PFTs were actually done up in [place]. She has been getting medication here from [facility]. She has been on Symbicort and ProAir. She was on oxygen at home in the past, but not since moving here about 6 years ago. She is very limited in terms of her physical activity. She is still smoking 2 to 3 cigarettes per day. In the past, she smoked up to 2-1/2 packs per day. She started smoking at age 10. PAST MEDICAL HISTORY: 1. Chronic obstructive pulmonary disease. 2. Hypertension. 3. Hyperlipidemia. 4. Osteoarthritis. 5. Chronic low back pain. PAST SURGICAL HISTORY: 1. x3. 2. Hysterectomy. PSYCHIATRIC HISTORY: Bipolar disorder. SOCIAL HISTORY: See above. She also drinks 1 to 2 mixed drinks per day. Does not use any illicit drugs. FAMILY MEDICAL HISTORY: Remarkable for stroke. ALLERGIES: ASPIRIN AND CODEINE. MEDICATIONS: See above. Additionally, she has been on; 1. Aspirin. 2. Wellbutrin. 3. Prozac. 4. Ibuprofen. 5. Synthroid. 6. Pravastatin. Her inpatient profile shows that she is taking; 1. Prednisone. 2. DuoNeb. 3. Ceftriaxone. REVIEW OF SYSTEMS: She has had no weight loss. No fever, chills, nausea, vomiting, chest pain, hemoptysis, melena, hematochezia, hematuria, or dysuria. PHYSICAL EXAMINATION: VITAL SIGNS: Temperature 98.6, pulse 77, blood pressure 185/99, O2 saturation 87% on room air. HEENT: Unremarkable. NECK: Without adenopathy, JVD, or bruits. LUNGS: She has clear, but diminished breath sounds throughout. CARDIOVASCULAR: S1 and S2 regular without murmur. ABDOMEN: Soft, nontender, and nondistended. Bowel sounds normoactive. EXTREMITIES: No clubbing, cyanosis, or edema. LABORATORY DATA: Sodium 139, potassium 3.9, chloride 95, CO2 of 33, BUN 15, creatinine 0.7, glucose 115. White blood count 14.6, hematocrit 47.9, and platelet count 262. ASSESSMENT: 1. Chronic obstructive pulmonary disease with exacerbation. 2. Tobacco abuse. 3. Hypoxemia secondary to chronic obstructive pulmonary disease. PLAN: This patient very likely will need to be on home oxygen. I agree with the treatment of Nakul and Bailee. She needs to be tapered off prednisone over couple weeks. I would finish out 7 days of antibiotics and stop. She has been cautioned not to smoke. She needs PFTs as an outpatient, but she needs to be over current exacerbation first. I think, she is stable for discharge at any time. Job ID: [id number]
[2018-05-08] MEDS: Levothyroxine Sodium 112 MCG TAB PO SCH (05:26)
[2018-05-08] MEDS ORDERED: predniSONE 20 MG TAB PO SCH (08:00)
[2018-05-08] MEDS: cefTRIAXone\\ROCEPHIN 1 GM in Sodium Chloride 0.9% 100 ML IVPB SCH (08:38)
[2018-05-08] MEDS: Saccharomyces boulardii 250 MG CAP PO SCH (08:40)
[2018-05-08] MEDS: Enoxaparin Sodium 40 MG/0.4 ML SYRINGE SC SCH (08:40)
[2018-05-08] MEDS: guaiFENesin ER 600 MG TAB PO SCH (08:40)
--- NOTE | 2018-05-08 09:00 | PRG ---
DATE OF SERVICE: 05/08/2018 SUBJECTIVE: She is feeling well and wants to go home. OBJECTIVE: VITAL SIGNS: On exam, temperature 97.7, pulse 73, respirations 20, O2 saturation 92% on 2 L, blood pressure 155/99. HEENT: Unremarkable. NECK: No adenopathy. No JVD. LUNGS: Clear anteriorly. CARDIAC: S1, S2, regular. ABDOMEN: Soft. EXTREMITIES: No edema. ASSESSMENT: 1. Chronic obstructive pulmonary disease with exacerbation. 2. Hypoxemia secondary to chronic obstructive pulmonary disease. PLAN: She is okay to go home. She will need home oxygen evaluation prior to discharge and probably will need to be on home oxygen permanently. I will need to see her in the office in about 1 month. Job ID: [id number]
[2018-05-08] MEDS: Mometasone/Formoterol 120 PUFF INHALER INH SCH (11:01)
[2018-05-08] MEDS: Nicotine 7 MG PATCH TOP SCH (14:54)
[2018-05-08] MEDS: ALPRAZolam 0.25 MG TAB PO PRN (17:17)
[2018-05-08 17:53] VITALS: BP 160/83; TEMP 98.2
== END 2018-05-08 18:55 | disposition home or self-care (01) | DRG 177 ==
LOC: ERS 09:55 → T4-A 10:33
PROVIDERS: ADMIT Internal Medicine; ATTEND Internal Medicine
DX: J15.6 Pneumonia due to other Gram-negative bacteria (principal); J96.01 Acute respiratory failure with hypoxia; J44.1 Chronic obstructive pulmonary disease with (acute) exacerbation; I10 Essential (primary) hypertension; E78.5 Hyperlipidemia, unspecified; M19.90 Unspecified osteoarthritis, unspecified site; G89.29 Other chronic pain; M54.5 Low back pain; F31.9 Bipolar disorder, unspecified; D75.89 Other specified diseases of blood and blood-forming organs; E03.9 Hypothyroidism, unspecified; F17.210 Nicotine dependence, cigarettes, uncomplicated; Z79.82 Long term (current) use of aspirin; Z82.3 Family history of stroke
CPT/HCPCS: 36415; 71250; 80048; 82607; 82746; 83880; 85025; 94640; 96365; J0456; J0696; J1650; J1885; J2920; J3475; J7050; J7620

== ENCOUNTER 2018-06-17 12:16 | Outpatient (CLI) | payer BC ==
--- NOTE | 2018-06-17 12:38 | RAD ---
EXAM: Two views chest PROVIDED CLINICAL HISTORY: Dyspnea COMPARISON: 05/02/2018 FINDINGS: Cardiac and mediastinal silhouette appears within normal limits. Lungs appear free of significant opa city. No pleural fluid or pneumothorax apparent. Previously described left midlung zone opacity is no longer evident. IMPRESSION: No evidence for an acute cardiopulmonary process.
== END 2018-06-17 12:17 | disposition home or self-care (01) ==
LOC: RAD 12:16
PROVIDERS: ATTEND Internal Medicine Critical Care Medicine
DX: R06.00 Dyspnea, unspecified (principal)
CPT/HCPCS: 71046

== ENCOUNTER 2021-08-30 15:56 | Inpatient (IN) | payer OTHER ==
[2021-08-30] MEDS ORDERED: Magnesium 2 GM/50 ML BAG (IN WATER) ONE (16:23)
[2021-08-30 16:34] LABS: #Basophils 0.1 thou/uL (0.0-0.2); #Eosinphils 0.5 thou/uL (0.0-0.7); #Monocytes 0.6 thou/uL (0.11-0.59); #Neutrophils 7.7 thou/uL (1.40-6.50); %Basophils 0.9 % (0.0-1.0); %Eosinophils 4.3 % (0.0-10.0); %Lymphocytes 18.6 % (21.0-51.0); %Monocytes 5.3 % (0.0-10.0); %Neutrophils 70.9 % (42.0-75.0); Hemoglobin 14.1 g/dL (12.0-16.0); Mean Corpuscular HGB CONC 30.6 g/dL (32.0-36.0); Mean Corpuscular Hemoglobin 33.4 pg (27.0-31.0); Mean Platelet Volume 7.7 fL (7.4-10.4); Platelet Count 264 thou/uL (130-400); RBC Distribution Width 13.8 % (11.5-14.5); Red Blood Cell (RBC) Count 4.23 mill/uL (4.20-5.40); White Blood Cell (WBC) Count 10.9 thou/uL (4.8-10.8)
[2021-08-30 17:20] LABS: MDiff Complete? YES; Macrocytosis SLIGHT = 6-15 cells (100X) (0-5/hpf); Platelet Morphology Comment Appears Adequate; Polychromasia SLIGHT = 2-3 cells (100X) (0-2/hpf)
[2021-08-30 17:59] LABS: ALT (SGPT) 10 U/L (8-55); AST (SGOT) 17 U/L (5-34); Albumin 3.6 g/dL (3.4-4.8); Alkaline Phosphatase 57 U/L (40-110); Anion Gap 17 mmol/L (10-20); BUN (Urea Nitrogen) 6 mg/dL (9.8-20.1); Bilirubin, Total 0.4 mg/dL (0.2-1.2); Calc. Creatinine Clearance 0 mL/min (70-130); Calcium 9.2 mg/dL (7.8-10.44); Carbon Dioxide 36 mmol/L (23-31); Chloride 93 mmol/L (98-107); Globulin 3.4 g/dL (2.4-3.5); Glucose 116 mg/dL (80-115); Potassium 3.6 mmol/L (3.5-5.1); Sodium 142 mmol/L (136-145)
[2021-08-30 20:19] LABS: Bacteria/HPF 2+ HPF (None Seen); Bilirubin Negative (Negative); Blood, Urine 3+ (Negative); Clarity Clear (Clear); Glucose, Urine (Dipstick) Normal (Negative); Ketone, Urine Negative (Negative); Leukocyte Negative Leu/uL (Negative); Mucous/LPF Rare LPF (<2+); Nitrite Negative (Negative); Protein, Urine (Dipstick) 30 mg/dL (Neg-Trace); RBC/HPF 21-50 HPF (0-3); Specific Gravity, Urine 1.014 (1.002-1.036); Squamous Epithelial 0-3 HPF (0-3); Urobilinogen Normal mg/dL (Less than 2)
[2021-08-30] MEDS ORDERED: Ondansetron ODT 4 MG TAB PO PRN (20:22)
[2021-08-30] MEDS ORDERED: Acetaminophen 650 MG Suppository PR PRN (20:22)
[2021-08-30] MEDS ORDERED: Ondansetron PF 4 MG/2 ML Vial IVP PRN (20:22)
[2021-08-30] MEDS ORDERED: Acetaminophen 325 MG TAB PO PRN (20:22)
[2021-08-30 22:23] VITALS: BMI 37.3
[2021-08-30] MEDS: Azithromycin 500 MG in Sodium Chloride 0.9% 250 ML 250 ML IVPB SCH (22:55)
[2021-08-31 05:06] LABS: #Lymphocytes 0.9 thou/uL (1.20-3.40); #Monocytes 0.4 thou/uL (0.11-0.59); #Neutrophils 9.1 thou/uL (1.40-6.50); %Basophils 0.3 % (0.0-1.0); %Eosinophils 0.4 % (0.0-10.0); %Lymphocytes 8.5 % (21.0-51.0); %Monocytes 3.3 % (0.0-10.0); %Neutrophils 87.6 % (42.0-75.0); Hemoglobin 12.5 g/dL (12.0-16.0); Mean Corpuscular HGB CONC 30.9 g/dL (32.0-36.0); Mean Corpuscular Hemoglobin 33.7 pg (27.0-31.0); Mean Platelet Volume 8.2 fL (7.4-10.4); Platelet Count 248 thou/uL (130-400); RBC Distribution Width 13.8 % (11.5-14.5); Red Blood Cell (RBC) Count 3.71 mill/uL (4.20-5.40); White Blood Cell (WBC) Count 10.4 thou/uL (4.8-10.8)
[2021-08-31 05:31] LABS: BUN (Urea Nitrogen) 7 mg/dL (9.8-20.1); Calc. Creatinine Clearance 122 mL/min (70-130); Calcium 8.5 mg/dL (7.8-10.44); Glucose 169 mg/dL (80-115)
[2021-08-31 05:42] LABS: Anion Gap 16 mmol/L (10-20); Carbon Dioxide 35 mmol/L (23-31); Chloride 91 mmol/L (98-107); Potassium 3.6 mmol/L (3.5-5.1); Sodium 138 mmol/L (136-145)
[2021-08-31] MEDS: methylPREDNISolone Sod Succ 40 MG VIAL IVP SCH (08:10)
[2021-08-31] MEDS: Enoxaparin Sodium 40 MG/0.4 ML SYRINGE SC SCH (08:11)
[2021-08-31] MEDS: Furosemide 20 MG/2 ML VIAL SLOW IVP SCH (14:33)
[2021-08-31] MEDS: Primidone 50 MG TAB PO SCH (20:54)
[2021-08-31] MEDS: Atorvastatin Calcium 10 MG TAB PO SCH (20:54)
[2021-08-31] MEDS: Azithromycin 500 MG in Sodium Chloride 0.9% 250 ML 250 ML IVPB SCH (20:57)
[2021-08-31] MEDS: ALPRAZolam 0.5 MG TAB PO PRN (23:14)
[2021-09-01] MEDS: Levothyroxine Sodium 112 MCG TAB PO SCH (07:32)
[2021-09-01] MEDS: Furosemide 20 MG/2 ML VIAL SLOW IVP SCH ×2 (07:33→14:12)
[2021-09-01] MEDS: methylPREDNISolone Sod Succ 40 MG VIAL IVP SCH (09:19)
[2021-09-01] MEDS: Escitalopram Oxalate 10 mg Tablet PO SCH (09:19)
[2021-09-01] MEDS: Divalproex Sodium 250 MG (DR) TAB PO SCH (09:19)
[2021-09-01] MEDS: Enoxaparin Sodium 40 MG/0.4 ML SYRINGE SC SCH (09:19)
[2021-09-01] MEDS: Atorvastatin Calcium 10 MG TAB PO SCH (21:17)
[2021-09-01] MEDS: Primidone 50 MG TAB PO SCH (21:17)
[2021-09-01] MEDS: Azithromycin 500 MG in Sodium Chloride 0.9% 250 ML 250 ML IVPB SCH (21:20)
[2021-09-01] MEDS: ALPRAZolam 0.5 MG TAB PO PRN (23:44)
[2021-09-02 05:05] LABS: #Basophils 0.1 thou/uL (0.0-0.2); #Eosinphils 0.1 thou/uL (0.0-0.7); #Lymphocytes 2.2 thou/uL (1.20-3.40); #Monocytes 0.7 thou/uL (0.11-0.59); #Neutrophils 7.7 thou/uL (1.40-6.50); %Basophils 0.5 % (0.0-1.0); %Eosinophils 0.8 % (0.0-10.0); %Lymphocytes 20.7 % (21.0-51.0); %Monocytes 6.5 % (0.0-10.0); %Neutrophils 71.5 % (42.0-75.0); Hemoglobin 11.6 g/dL (12.0-16.0); Mean Corpuscular HGB CONC 30.9 g/dL (32.0-36.0); Mean Corpuscular Hemoglobin 33.5 pg (27.0-31.0); Mean Platelet Volume 7.8 fL (7.4-10.4); Platelet Count 226 thou/uL (130-400); Red Blood Cell (RBC) Count 3.48 mill/uL (4.20-5.40); White Blood Cell (WBC) Count 10.8 thou/uL (4.8-10.8)
[2021-09-02 05:21] LABS: BUN (Urea Nitrogen) 16 mg/dL (9.8-20.1); Calc. Creatinine Clearance 129 mL/min (70-130); Calcium 8.6 mg/dL (7.8-10.44); Glucose 103 mg/dL (80-115)
[2021-09-02 05:31] LABS: Anion Gap 18 mmol/L (10-20); Carbon Dioxide 37 mmol/L (23-31); Chloride 91 mmol/L (98-107); Potassium 3.4 mmol/L (3.5-5.1); Sodium 143 mmol/L (136-145)
[2021-09-02] MEDS: Furosemide 20 MG/2 ML VIAL SLOW IVP SCH ×2 (05:47→14:12)
[2021-09-02] MEDS: Levothyroxine Sodium 112 MCG TAB PO SCH (05:47)
[2021-09-02] MEDS ORDERED: Potassium Chloride 20 MEQ TAB PO SCH (08:00)
[2021-09-02] MEDS: methylPREDNISolone Sod Succ 40 MG VIAL IVP SCH (09:24)
[2021-09-02] MEDS: Divalproex Sodium 250 MG (DR) TAB PO SCH (09:24)
[2021-09-02] MEDS: Enoxaparin Sodium 40 MG/0.4 ML SYRINGE SC SCH (09:24)
[2021-09-02] MEDS: Escitalopram Oxalate 10 mg Tablet PO SCH (09:24)
[2021-09-02 11:46] VITALS: BP 137/81; TEMP 97.4
== END 2021-09-02 15:07 | disposition home or self-care (01) | DRG 291 ==
LOC: ERS 15:56 → 2SW 20:22 → OBSVTOIN 08-31 13:32
PROVIDERS: ADMIT Student in an Organized Health Care Education/Training Program; ATTEND Internal Medicine
DX: I11.0 Hypertensive heart disease with heart failure (principal); J96.21 Acute and chronic respiratory failure with hypoxia; I50.33 Acute on chronic diastolic (congestive) heart failure; J44.1 Chronic obstructive pulmonary disease with (acute) exacerbation; E78.5 Hyperlipidemia, unspecified; D72.829 Elevated white blood cell count, unspecified; E87.6 Hypokalemia; G89.29 Other chronic pain; F31.9 Bipolar disorder, unspecified; E03.9 Hypothyroidism, unspecified; Z20.822 Contact with and (suspected) exposure to COVID-19; Z88.8 Allergy status to other drugs, medicaments and biological substances; Z88.5 Allergy status to narcotic agent; Z79.899 Other long term (current) drug therapy; Z79.82 Long term (current) use of aspirin; Z79.890 Hormone replacement therapy; Z98.890 Other specified postprocedural states; Z98.891 History of uterine scar from previous surgery; Z90.710 Acquired absence of both cervix and uterus; Z87.891 Personal history of nicotine dependence; Z72.89 Other problems related to lifestyle
CPT/HCPCS: 36415; 71045; 80048; 80053; 81003; 81015; 83605; 83735; 83880; 84484; 85025; 93005; 93306; 93798; 94640; 96367; 96375; G0378; J0456; J1650; J1940; J2920; J3475; J7050; J7620; U0003; U0005

== ENCOUNTER 2021-11-04 10:02 | Inpatient (IN) | payer OTHER ==
[2021-11-04] MEDS ORDERED: Enoxaparin Sodium 40 MG/0.4 ML SYRINGE SC SCH (13:30)
[2021-11-04 14:11] LABS: Actual Bicarbonate (HCO3a) 38.1 mEq/L (22-28); Analyzer IN Cardio ER; Base Excess (BEa) 12.2 mEq/L (-2.0 to +3.0); Calcium, Ionized (arterial) 1.06 mmol/L (1.12-1.30); Carboxyhemoglobin (COHb) 0.7 gm% (0.0-3.0); Hemoglobin (Hb) 14.8 g/dL (12.0-16.0); Potassium - ABG Lab 2.94 mmol/L (3.70-5.30); pH, Arterial 7.47 (7.35-7.45)
[2021-11-04] MEDS ORDERED: Mometasone 200 MCG/Formoterol 5 MCG 120 PUFF INHALER INH SCH (14:30)
[2021-11-04 14:35] LABS: O2 Tension (PaO2), arterial 53.5 mmHg (> 80.0); Puncture Site RRA
[2021-11-04 14:51] LABS: Anion Gap 22 mmol/L (10-20); BUN (Urea Nitrogen) 9 mg/dL (9.8-20.1); CK (CPK) 1082 U/L (29-168); Calc. Creatinine Clearance 0 mL/min (70-130); Calcium 9.1 mg/dL (7.8-10.44); Carbon Dioxide 30 mmol/L (23-31); Chloride 83 mmol/L (98-107); Estimated GFR 85; Glucose 191 mg/dL (80-115); Potassium 3.2 mmol/L (3.5-5.1); Sodium 132 mmol/L (136-145)
[2021-11-04] MEDS ORDERED: Levothyroxine Sodium 112 MCG TAB PO SCH (15:00)
[2021-11-04 15:15] LABS: Thyroid Stimulating Hormone 15.8389 uIU/mL (0.35-4.94)
[2021-11-04] MEDS ORDERED: Potassium Chloride 20 MEQ TAB PO SCH (15:15)
[2021-11-04] MEDS ORDERED: methylPREDNISolone Sod Succ/PF 125 MG/2 ML VIAL IVP SCH (16:00)
[2021-11-04] MEDS ORDERED: methylPREDNISolone Sod Succ 40 MG VIAL ONE (16:41)
[2021-11-04] MEDS: Potassium Chloride 20 MEQ in Premix Bag 1 BAG IVPB SCH ×2 (16:44→19:11)
[2021-11-04] MEDS: Multivitamins, Adult 10 ML, Folic Acid 1 MG, Thiamine HCl 100 MG in Dextrose 5 %-0.45 %... IV SCH ×2 (16:46→21:03)
[2021-11-04 18:51] LABS: Amphetamine Not Detected (NotDetected); Barbiturates Screen Not Detected (NotDetected); Benzodiazepine Screen Not Detected (NotDetected); Cocaine Metabolite Screen Not Detected (NotDetected); Methadone Not Detected (NotDetected); Methamphetamine Not Detected (NotDetected); Opiate Screen Not Detected (NotDetected); Oxycodone Screen Not Detected (NotDetected); Phencyclidine (PCP) Not Detected (NotDetected); THC/Cannabinoid Screen Not Detected (NotDetected); Tricyclic Screen Not Detected (NotDetected)
[2021-11-04] MEDS: Mometasone 200 MCG/Formoterol 5 MCG 120 PUFF INHALER INH SCH (19:20)
[2021-11-04 20:25] VITALS: BMI 40.8
[2021-11-05] MEDS: Levothyroxine Sodium 112 MCG TAB PO SCH (06:23)
[2021-11-05] MEDS: Mometasone 200 MCG/Formoterol 5 MCG 120 PUFF INHALER INH SCH ×2 (07:30→19:19)
[2021-11-05] MEDS: methylPREDNISolone Sod Succ/PF 125 MG/2 ML VIAL IVP SCH (08:18)
[2021-11-05] MEDS: Enoxaparin Sodium 40 MG/0.4 ML SYRINGE SC SCH (08:18)
[2021-11-06] MEDS: Levothyroxine Sodium 112 MCG TAB PO SCH (05:48)
[2021-11-06] MEDS: Mometasone 200 MCG/Formoterol 5 MCG 120 PUFF INHALER INH SCH (06:54)
[2021-11-06] MEDS: methylPREDNISolone Sod Succ/PF 125 MG/2 ML VIAL IVP SCH (08:45)
[2021-11-06] MEDS: Enoxaparin Sodium 40 MG/0.4 ML SYRINGE SC SCH (08:45)
[2021-11-06] MEDS ORDERED: Albuterol Sulfate 2.5 mg/0.5 ml Neb NEB PRN (09:50)
[2021-11-06] MEDS ORDERED: ALPRAZolam 0.25 MG TAB PO SCH (10:00)
[2021-11-06] MEDS ORDERED: Lisinopril/Hydrochlorothiazide 20/25 mg Tablet PO SCH (10:00)
[2021-11-06] MEDS ORDERED: Divalproex Sodium 250 MG (DR) TAB PO SCH (10:00)
[2021-11-06] MEDS ORDERED: Escitalopram Oxalate 10 mg Tablet PO SCH (10:00)
[2021-11-06] MEDS ORDERED: Aspirin Chewable 81 MG TAB PO SCH (10:00)
[2021-11-06] MEDS: Primidone 50 MG TAB PO SCH (20:01)
[2021-11-06] MEDS: ALPRAZolam 0.25 MG TAB PO SCH (20:01)
[2021-11-07] MEDS: Mometasone 200 MCG/Formoterol 5 MCG 120 PUFF INHALER INH SCH ×3 (00:35→18:59)
[2021-11-07] MEDS: Levothyroxine Sodium 88 MCG TAB PO SCH (05:14)
[2021-11-07] MEDS ORDERED: Levothyroxine Sodium 88 MCG TAB PO SCH (06:00)
[2021-11-07 07:08] LABS: Hemoglobin 12.5 g/dL (12.0-16.0); Mean Corpuscular HGB CONC 30.9 g/dL (32.0-36.0); Mean Corpuscular Hemoglobin 32.5 pg (27.0-31.0); Mean Platelet Volume 8.6 fL (7.4-10.4); Platelet Count 233 thou/uL (130-400); RBC Distribution Width 13.1 % (11.5-14.5); Red Blood Cell (RBC) Count 3.85 mill/uL (4.20-5.40)
[2021-11-07 07:35] LABS: BUN (Urea Nitrogen) 19 mg/dL (9.8-20.1); Calc. Creatinine Clearance 118 mL/min (70-130); Calcium 8.5 mg/dL (7.8-10.44); Estimated GFR 92; Glucose 107 mg/dL (80-115)
[2021-11-07 07:44] LABS: Anion Gap 18 mmol/L (10-20); Carbon Dioxide 34 mmol/L (23-31); Chloride 92 mmol/L (98-107); Potassium 3.5 mmol/L (3.5-5.1); Sodium 140 mmol/L (136-145)
[2021-11-07 07:57] LABS: #Lymphocytes 1.9 thou/uL (1.20-3.40); #Monocytes 0.9 thou/uL (0.11-0.59); #Neutrophils 12.1 thou/uL (1.40-6.50); %Basophils 0.2 % (0.0-1.0); %Eosinophils 0.2 % (0.0-10.0); %Lymphocytes 12.3 % (21.0-51.0); %Monocytes 6.3 % (0.0-10.0); %Neutrophils 80.9 % (42.0-75.0); Band 8 % (5-11); Eosinophils 1 % (0-10); Lymphocytes 14 % (21-51); MDiff Complete? YES; Metamyelocyte 1 % (0-0); Monocytes 8 % (0-10); Neutrophil 68 % (42-75); Platelet Morphology Comment Appears Adequate; RBC Morphology Normal
[2021-11-07] MEDS: Aspirin Chewable 81 MG TAB PO SCH (08:21)
[2021-11-07] MEDS: Enoxaparin Sodium 40 MG/0.4 ML SYRINGE SC SCH (08:21)
[2021-11-07] MEDS: Furosemide 20 MG TAB PO SCH (08:22)
[2021-11-07] MEDS: Divalproex Sodium 250 MG (DR) TAB PO SCH (08:22)
[2021-11-07] MEDS: Escitalopram Oxalate 10 mg Tablet PO SCH (08:22)
[2021-11-07] MEDS: predniSONE 50 MG TAB PO SCH (08:22)
[2021-11-07] MEDS: ALPRAZolam 0.25 MG TAB PO SCH ×2 (08:22→21:06)
[2021-11-07] MEDS: Lisinopril/Hydrochlorothiazide 20/25 mg Tablet PO SCH (08:23)
[2021-11-07] MEDS: Primidone 50 MG TAB PO SCH (21:06)
[2021-11-08] MEDS: Levothyroxine Sodium 88 MCG TAB PO SCH (05:38)
[2021-11-08 06:45] LABS: #Eosinphils 0.1 thou/uL (0.0-0.7); #Lymphocytes 2.4 thou/uL (1.20-3.40); #Monocytes 0.8 thou/uL (0.11-0.59); #Neutrophils 9.1 thou/uL (1.40-6.50); %Basophils 0.2 % (0.0-1.0); %Eosinophils 0.7 % (0.0-10.0); %Lymphocytes 19.5 % (21.0-51.0); %Monocytes 6.1 % (0.0-10.0); %Neutrophils 73.5 % (42.0-75.0); Hemoglobin 12.5 g/dL (12.0-16.0); Mean Corpuscular HGB CONC 32.3 g/dL (32.0-36.0); Mean Platelet Volume 8.5 fL (7.4-10.4); Platelet Count 219 thou/uL (130-400); RBC Distribution Width 13.3 % (11.5-14.5); Red Blood Cell (RBC) Count 3.68 mill/uL (4.20-5.40); White Blood Cell (WBC) Count 12.4 thou/uL (4.8-10.8)
[2021-11-08 07:15] LABS: BUN (Urea Nitrogen) 22 mg/dL (9.8-20.1); Calc. Creatinine Clearance 105 mL/min (70-130); Estimated GFR 80; Glucose 93 mg/dL (80-115)
[2021-11-08 07:24] LABS: Anion Gap 15 mmol/L (10-20); Carbon Dioxide 38 mmol/L (23-31); Chloride 89 mmol/L (98-107); Potassium 3.3 mmol/L (3.5-5.1); Sodium 139 mmol/L (136-145)
[2021-11-08] MEDS: Furosemide 20 MG TAB PO SCH (08:00)
[2021-11-08] MEDS: predniSONE 50 MG TAB PO SCH (08:00)
[2021-11-08] MEDS: Enoxaparin Sodium 40 MG/0.4 ML SYRINGE SC SCH (08:00)
[2021-11-08] MEDS: Divalproex Sodium 250 MG (DR) TAB PO SCH (08:00)
[2021-11-08] MEDS: Aspirin Chewable 81 MG TAB PO SCH (08:00)
[2021-11-08] MEDS: Lisinopril/Hydrochlorothiazide 20/25 mg Tablet PO SCH (08:00)
[2021-11-08] MEDS: Escitalopram Oxalate 10 mg Tablet PO SCH (08:00)
[2021-11-08] MEDS: ALPRAZolam 0.25 MG TAB PO SCH (08:00)
[2021-11-08 08:48] VITALS: BP 104/68; TEMP 97.9
[2021-11-08] MEDS: Mometasone 200 MCG/Formoterol 5 MCG 120 PUFF INHALER INH SCH ×2 (10:51→18:52)
== END 2021-11-08 18:52 | disposition swing bed (61) | DRG 190 ==
LOC: T4-B 11:30 → OBSVTOIN 11-05 16:05
PROVIDERS: ADMIT Internal Medicine; ATTEND Internal Medicine
DX: J43.9 Emphysema, unspecified (principal); G93.41 Metabolic encephalopathy; I50.32 Chronic diastolic (congestive) heart failure; Z68.41 Body mass index [BMI] 40.0-44.9, adult; J96.11 Chronic respiratory failure with hypoxia; J96.12 Chronic respiratory failure with hypercapnia; M62.82 Rhabdomyolysis; Z20.822 Contact with and (suspected) exposure to COVID-19; F10.20 Alcohol dependence, uncomplicated; F41.9 Anxiety disorder, unspecified; I11.0 Hypertensive heart disease with heart failure; E03.9 Hypothyroidism, unspecified; E78.5 Hyperlipidemia, unspecified; E66.9 Obesity, unspecified; R29.6 Repeated falls; Z91.81 History of falling; Z88.5 Allergy status to narcotic agent; Z88.8 Allergy status to other drugs, medicaments and biological substances; Z91.018 Allergy to other foods; Z79.899 Other long term (current) drug therapy; Z79.82 Long term (current) use of aspirin; Z98.890 Other specified postprocedural states; Z90.710 Acquired absence of both cervix and uterus; Z87.891 Personal history of nicotine dependence; Z99.81 Dependence on supplemental oxygen
CPT/HCPCS: 36415; 36600; 80048; 80306; 82533; 82550; 82607; 82805; 84146; 84425; 84443; 85025; 85379; 96372; 96374; 96375; 96376; G0378; J1650; J2930; J3411; J3480; J7042; J7512

== ENCOUNTER 2021-12-09 13:47 | Inpatient (IN) | payer OTHER ==
[2021-12-09 14:34] LABS: #Basophils 0.1 thou/uL (0.0-0.2); #Eosinphils 0.1 thou/uL (0.0-0.7); #Lymphocytes 1.4 thou/uL (1.20-3.40); #Monocytes 0.5 thou/uL (0.11-0.59); #Neutrophils 8.3 thou/uL (1.40-6.50); %Basophils 0.6 % (0.0-1.0); %Eosinophils 1.2 % (0.0-10.0); %Lymphocytes 13.7 % (21.0-51.0); %Neutrophils 79.5 % (42.0-75.0); Hemoglobin 13.4 g/dL (12.0-16.0); Mean Corpuscular HGB CONC 30.3 g/dL (32.0-36.0); Mean Platelet Volume 10.5 fL (7.4-10.4); Platelet Count 205 thou/uL (130-400); RBC Distribution Width 12.7 % (11.5-14.5); Red Blood Cell (RBC) Count 4.05 mill/uL (4.20-5.40); White Blood Cell (WBC) Count 10.5 thou/uL (4.8-10.8)
[2021-12-09 14:52] LABS: ALT (SGPT) 16 U/L (8-55); AST (SGOT) 21 U/L (5-34); Albumin 3.9 g/dL (3.4-4.8); Alkaline Phosphatase 56 U/L (40-110); BUN (Urea Nitrogen) 23 mg/dL (9.8-20.1); Bilirubin, Total 0.5 mg/dL (0.2-1.2); Calc. Creatinine Clearance 0 mL/min (70-130); Calcium 10.1 mg/dL (7.8-10.44); Estimated GFR 99; Globulin 3.4 g/dL (2.4-3.5); Glucose 121 mg/dL (80-115); Protein, Total 7.3 g/dL (5.8-8.1)
[2021-12-09 14:55] LABS: Troponin I 0.024 ng/mL (< 0.028)
[2021-12-09 15:03] LABS: Anion Gap 16 mmol/L (10-20); Carbon Dioxide 38 mmol/L (23-31); Chloride 94 mmol/L (98-107); Potassium 3.7 mmol/L (3.5-5.1); Sodium 144 mmol/L (136-145)
[2021-12-09 15:04] LABS: Bacteria/HPF None Seen HPF (None Seen); Bilirubin 1+ (Negative); Blood, Urine Negative (Negative); Clarity Turbid (Clear); Glucose, Urine (Dipstick) 30 mg/dL (Negative); Ketone, Urine 40 mg/dL (Negative); Leukocyte Negative Leu/uL (Negative); Nitrite Negative (Negative); Protein, Urine (Dipstick) 100 mg/dL (Neg-Trace); RBC/HPF 0-3 HPF (0-3); Specific Gravity, Urine 1.027 (1.002-1.036); Squamous Epithelial None Seen HPF (0-3); Urobilinogen 6 mg/dL (Less than 2); WBC/HPF 0-3 HPF (0-3)
[2021-12-09 15:36] LABS: SARS-CoV-2 NAA Rapid Test Not Detected (NotDetected)
[2021-12-09] MEDS ORDERED: guaiFENesin 200 MG TAB PO PRN (17:21)
[2021-12-09] MEDS ORDERED: Albuterol 200 PUFF (6.7GM INHALER) INH PRN (17:26)
[2021-12-09] MEDS ORDERED: Furosemide 40 MG/4 ML VIAL SLOW IVP SCH (17:28)
[2021-12-09 18:07] LABS: Troponin I Less than 0.010 ng/mL (< 0.028)
[2021-12-09] MEDS ORDERED: Lorazepam 2 MG/ML VIAL IM PRN (18:11)
[2021-12-09] MEDS ORDERED: Electrolyte Replacement Protocol 1 EACH FS SCH (18:15)
[2021-12-09] MEDS ORDERED: Electrolyte Replacement Protocol FS PRN (18:15)
[2021-12-09] MEDS ORDERED: Albuterol Sulfate 1.25 MG/3 ML NEB NEB PRN (19:29)
[2021-12-09 20:53] LABS: Troponin I 0.011 ng/mL (< 0.028)
[2021-12-09] MEDS: Divalproex Sodium 250 MG (DR) TAB PO SCH (21:36)
[2021-12-09] MEDS: Lorazepam 1 MG TAB PO SCH (23:19)
[2021-12-10 05:12] LABS: Amphetamine Not Detected (NotDetected); Barbiturates Screen Detected (NotDetected); Benzodiazepine Screen Detected (NotDetected); Cocaine Metabolite Screen Not Detected (NotDetected); Methadone Not Detected (NotDetected); Methamphetamine Not Detected (NotDetected); Opiate Screen Not Detected (NotDetected); Oxycodone Screen Not Detected (NotDetected); Phencyclidine (PCP) Not Detected (NotDetected); THC/Cannabinoid Screen Not Detected (NotDetected); Tricyclic Screen Not Detected (NotDetected)
[2021-12-10] MEDS: Furosemide 40 MG/4 ML VIAL SLOW IVP SCH ×2 (06:33→14:05)
[2021-12-10] MEDS: Levothyroxine Sodium 112 MCG TAB PO SCH (06:34)
[2021-12-10] MEDS: Lorazepam 1 MG TAB PO SCH ×2 (06:40)
[2021-12-10] MEDS: Mometasone 200 MCG/Formoterol 5 MCG 120 PUFF INHALER INH SCH ×2 (07:08→19:07)
[2021-12-10] MEDS ORDERED: Furosemide 20 MG TAB PO SCH (09:00)
[2021-12-10] MEDS ORDERED: Lisinopril/Hydrochlorothiazide 20/25 mg Tablet PO SCH (09:00)
[2021-12-10] MEDS ORDERED: Lorazepam 1 MG TAB PO PRN (09:25)
[2021-12-10] MEDS: Divalproex Sodium 250 MG (DR) TAB PO SCH ×2 (10:41→21:36)
[2021-12-10] MEDS: Multivit, Therapeutic 1 TAB PO SCH (10:41)
[2021-12-10] MEDS: Thiamine 100 MG TAB PO SCH (10:41)
[2021-12-10] MEDS: Folic Acid 1 MG TAB PO SCH (10:41)
[2021-12-10] MEDS: Aspirin Chewable 81 MG TAB PO SCH (10:41)
[2021-12-10 14:00] LABS: BUN (Urea Nitrogen) 24 mg/dL (9.8-20.1); Calc. Creatinine Clearance 131 mL/min (70-130); Calcium 9.5 mg/dL (7.8-10.44); Estimated GFR 98; Glucose 93 mg/dL (80-115)
[2021-12-10 14:08] LABS: Chloride 90 mmol/L (98-107); Potassium 3.4 mmol/L (3.5-5.1); Sodium 145 mmol/L (136-145)
[2021-12-10 14:11] LABS: Anion Gap 13 mmol/L (10-20)
[2021-12-10 14:39] LABS: Phosphorus 4.6 mg/dL (2.3-4.7)
[2021-12-10 14:41] LABS: Carbon Dioxide 45 mmol/L (23-31); Magnesium 1.4 mg/dL (1.6-2.6)
[2021-12-10] MEDS ORDERED: Potassium Chloride 20 MEQ TAB PO SCH (14:45)
[2021-12-10] MEDS ORDERED: Magnesium Sulfate In Water 4 GM in Premix Bag 1 BAG IVPB SCH (14:45)
[2021-12-10] MEDS ORDERED: Lorazepam 0.5 MG TAB PO PRN (14:52)
[2021-12-10] MEDS ORDERED: AcetaZOLAMIDE 250 MG TAB PO SCH (15:00)
[2021-12-10] MEDS ORDERED: Sodium Chloride 0.9% 1,000 ML IV SCH (15:00)
[2021-12-10 15:04] LABS: Actual Bicarbonate (HCO3a) 53.1 mEq/L (22-28); Base Excess (BEa) 23.6 mEq/L (-2.0 to +3.0); Calcium, Ionized (arterial) 1.14 mmol/L (1.12-1.30); Carboxyhemoglobin (COHb) 0.5 gm% (0.0-3.0); Hemoglobin (Hb) 13.3 g/dL (12.0-16.0); Potassium - ABG Lab 3.25 mmol/L (3.70-5.30); pH, Arterial 7.42 (7.35-7.45)
[2021-12-10 15:07] LABS: O2 Tension (PaO2), arterial 56.6 mmHg (> 80.0); Puncture Site RRA
[2021-12-10] MEDS: methylPREDNISolone Sod Succ 40 MG VIAL IVP SCH ×2 (15:47→22:33)
[2021-12-10] MEDS: Albumin 25% 25 GM/100 ML BOT IVPB SCH ×2 (16:59→22:33)
[2021-12-10 20:52] LABS: BUN (Urea Nitrogen) 27 mg/dL (9.8-20.1); Calc. Creatinine Clearance 111 mL/min (70-130); Calcium 9.8 mg/dL (7.8-10.44); Estimated GFR 84; Glucose 181 mg/dL (80-115)
[2021-12-10 21:01] LABS: Anion Gap 17 mmol/L (10-20); Chloride 87 mmol/L (98-107); Potassium 3.7 mmol/L (3.5-5.1); Sodium 142 mmol/L (136-145)
[2021-12-10 21:04] LABS: Carbon Dioxide 42 mmol/L (23-31)
[2021-12-10] MEDS: pyridOXINE 50 MG (B6) TAB PO SCH (21:36)
[2021-12-10] MEDS: Cyanocobalamin (Vitamin B-12) 1,000 MCG TAB PO SCH (21:36)
[2021-12-11 03:54] LABS: #Monocytes 0.3 thou/uL (0.11-0.59); #Neutrophils 9.2 thou/uL (1.40-6.50); %Basophils 0.4 % (0.0-1.0); %Eosinophils 0.3 % (0.0-10.0); %Monocytes 2.9 % (0.0-10.0); %Neutrophils 87.5 % (42.0-75.0); Hemoglobin 11.4 g/dL (12.0-16.0); Mean Corpuscular HGB CONC 30.9 g/dL (32.0-36.0); Mean Corpuscular Hemoglobin 32.1 pg (27.0-31.0); Mean Platelet Volume 10.1 fL (7.4-10.4); Platelet Count 213 thou/uL (130-400); Red Blood Cell (RBC) Count 3.55 mill/uL (4.20-5.40); White Blood Cell (WBC) Count 10.5 thou/uL (4.8-10.8)
[2021-12-11 04:03] LABS: PTT 28.3 sec (22.9-36.1); Prothrombin Time 13.5 sec (12.0-14.7)
[2021-12-11 04:17] LABS: ALT (SGPT) 14 U/L (8-55); AST (SGOT) 16 U/L (5-34); Albumin 4.1 g/dL (3.4-4.8); Alkaline Phosphatase 43 U/L (40-110); BUN (Urea Nitrogen) 26 mg/dL (9.8-20.1); Bilirubin, Total 0.4 mg/dL (0.2-1.2); Calc. Creatinine Clearance 112 mL/min (70-130); Calcium 9.9 mg/dL (7.8-10.44); Estimated GFR 85; Globulin 2.7 g/dL (2.4-3.5); Glucose 132 mg/dL (80-115); Magnesium 2.5 mg/dL (1.6-2.6); Phosphorus 4.9 mg/dL (2.3-4.7); Protein, Total 6.8 g/dL (5.8-8.1)
[2021-12-11 04:30] LABS: Chloride 89 mmol/L (98-107); Sodium 142 mmol/L (136-145)
[2021-12-11 04:33] LABS: Anion Gap 16 mmol/L (10-20)
[2021-12-11 04:39] LABS: Carbon Dioxide 41 mmol/L (23-31); Potassium 3.6 mmol/L (3.5-5.1)
[2021-12-11] MEDS: Levothyroxine Sodium 112 MCG TAB PO SCH (05:04)
[2021-12-11] MEDS: Albumin 25% 25 GM/100 ML BOT IVPB SCH ×2 (05:04→10:20)
[2021-12-11] MEDS: methylPREDNISolone Sod Succ 40 MG VIAL IVP SCH ×2 (06:19→15:12)
[2021-12-11] MEDS: Mometasone 200 MCG/Formoterol 5 MCG 120 PUFF INHALER INH SCH ×2 (06:49→18:04)
[2021-12-11] MEDS: AcetaZOLAMIDE 250 MG TAB PO SCH ×2 (08:07→21:35)
[2021-12-11] MEDS: Divalproex Sodium 250 MG (DR) TAB PO SCH (08:07)
[2021-12-11] MEDS: Multivit, Therapeutic 1 TAB PO SCH (08:08)
[2021-12-11] MEDS: Thiamine 100 MG TAB PO SCH (08:08)
[2021-12-11] MEDS: Folic Acid 1 MG TAB PO SCH (08:09)
[2021-12-11] MEDS: Aspirin Chewable 81 MG TAB PO SCH (08:09)
[2021-12-11] MEDS: Doxycycline 100 MG CAP PO SCH ×2 (10:18→21:35)
[2021-12-11] MEDS: cefTRIAXone\\ROCEPHIN 1 GM in Sodium Chloride 0.9% 100 ML IVPB SCH (10:20)
[2021-12-11] MEDS ORDERED: Thiamine HCl 200 MG/2 ML VIAL SLOW IVP SCH (10:30)
[2021-12-11] MEDS: Cyanocobalamin (Vitamin B-12) 1,000 MCG TAB PO SCH (21:35)
[2021-12-11] MEDS: pyridOXINE 50 MG (B6) TAB PO SCH (22:04)
[2021-12-12] MEDS: methylPREDNISolone Sod Succ 40 MG VIAL IVP SCH ×3 (00:49→20:10)
[2021-12-12 04:08] LABS: #Eosinphils 0.1 thou/uL (0.0-0.7); #Lymphocytes 1.4 thou/uL (1.20-3.40); #Monocytes 0.4 thou/uL (0.11-0.59); #Neutrophils 7.2 thou/uL (1.40-6.50); %Basophils 0.4 % (0.0-1.0); %Eosinophils 0.9 % (0.0-10.0); %Lymphocytes 15.6 % (21.0-51.0); %Monocytes 4.5 % (0.0-10.0); %Neutrophils 78.6 % (42.0-75.0); Hemoglobin 12.3 g/dL (12.0-16.0); Mean Corpuscular HGB CONC 31.5 g/dL (32.0-36.0); Mean Corpuscular Hemoglobin 32.4 pg (27.0-31.0); Mean Platelet Volume 10.7 fL (7.4-10.4); Platelet Count 210 thou/uL (130-400); RBC Distribution Width 13.4 % (11.5-14.5); White Blood Cell (WBC) Count 9.2 thou/uL (4.8-10.8)
[2021-12-12 04:25] LABS: Anion Gap 15 mmol/L (10-20); BUN (Urea Nitrogen) 26 mg/dL (9.8-20.1); Calc. Creatinine Clearance 116 mL/min (70-130); Carbon Dioxide 34 mmol/L (23-31); Chloride 97 mmol/L (98-107); Estimated GFR 88; Glucose 155 mg/dL (80-115); Phosphorus 4.2 mg/dL (2.3-4.7); Potassium 3.2 mmol/L (3.5-5.1); Sodium 143 mmol/L (136-145)
[2021-12-12] MEDS ORDERED: Potassium Chloride 20 MEQ TAB PO SCH (04:45)
[2021-12-12] MEDS: Levothyroxine Sodium 112 MCG TAB PO SCH (06:09)
[2021-12-12] MEDS: Mometasone 200 MCG/Formoterol 5 MCG 120 PUFF INHALER INH SCH ×2 (07:12→18:31)
[2021-12-12] MEDS: Furosemide 20 MG TAB PO SCH ×2 (10:05→14:41)
[2021-12-12] MEDS: AcetaZOLAMIDE 250 MG TAB PO SCH ×2 (10:05→20:08)
[2021-12-12] MEDS: Folic Acid 1 MG TAB PO SCH (10:05)
[2021-12-12] MEDS: Aspirin Chewable 81 MG TAB PO SCH (10:05)
[2021-12-12] MEDS: Multivit, Therapeutic 1 TAB PO SCH (10:05)
[2021-12-12] MEDS: Doxycycline 100 MG CAP PO SCH ×2 (10:05→20:07)
[2021-12-12] MEDS: cefTRIAXone\\ROCEPHIN 1 GM in Sodium Chloride 0.9% 100 ML IVPB SCH (10:06)
[2021-12-12] MEDS ORDERED: Lorazepam 0.5 MG TAB PO PRN (19:14)
[2021-12-12] MEDS: Cyanocobalamin (Vitamin B-12) 1,000 MCG TAB PO SCH (20:07)
[2021-12-12] MEDS: pyridOXINE 50 MG (B6) TAB PO SCH (20:08)
[2021-12-13 04:10] LABS: Anion Gap 15 mmol/L (10-20); BUN (Urea Nitrogen) 32 mg/dL (9.8-20.1); Calc. Creatinine Clearance 117 mL/min (70-130); Calcium 9.8 mg/dL (7.8-10.44); Carbon Dioxide 30 mmol/L (23-31); Chloride 100 mmol/L (98-107); Estimated GFR 91; Glucose 144 mg/dL (80-115); Potassium 3.7 mmol/L (3.5-5.1); Sodium 141 mmol/L (136-145)
[2021-12-13] MEDS: Levothyroxine Sodium 112 MCG TAB PO SCH (05:13)
[2021-12-13] MEDS: Mometasone 200 MCG/Formoterol 5 MCG 120 PUFF INHALER INH SCH ×2 (07:29→18:22)
[2021-12-13] MEDS: cefTRIAXone\\ROCEPHIN 1 GM in Sodium Chloride 0.9% 100 ML IVPB SCH (08:01)
[2021-12-13] MEDS: Doxycycline 100 MG CAP PO SCH ×2 (08:01→20:17)
[2021-12-13] MEDS: methylPREDNISolone Sod Succ 40 MG VIAL IVP SCH ×2 (08:01→20:16)
[2021-12-13] MEDS: Furosemide 20 MG TAB PO SCH ×2 (08:02→13:46)
[2021-12-13] MEDS: Aspirin Chewable 81 MG TAB PO SCH (08:02)
[2021-12-13] MEDS: Multivit, Therapeutic 1 TAB PO SCH (08:02)
[2021-12-13] MEDS: Folic Acid 1 MG TAB PO SCH (08:02)
[2021-12-13] MEDS: AcetaZOLAMIDE 250 MG TAB PO SCH (08:16)
[2021-12-13] MEDS: Cyanocobalamin (Vitamin B-12) 1,000 MCG TAB PO SCH (20:17)
[2021-12-13] MEDS: pyridOXINE 50 MG (B6) TAB PO SCH (20:17)
[2021-12-14 04:56] VITALS: BMI 38.7
[2021-12-14 04:56] LABS: Anion Gap 13 mmol/L (10-20); BUN (Urea Nitrogen) 37 mg/dL (9.8-20.1); Calc. Creatinine Clearance 111 mL/min (70-130); Calcium 9.8 mg/dL (7.8-10.44); Carbon Dioxide 34 mmol/L (23-31); Chloride 97 mmol/L (98-107); Estimated GFR 87; Glucose 143 mg/dL (80-115); Potassium 3.5 mmol/L (3.5-5.1); Sodium 140 mmol/L (136-145)
[2021-12-14] MEDS: Levothyroxine Sodium 112 MCG TAB PO SCH (05:27)
[2021-12-14] MEDS: Mometasone 200 MCG/Formoterol 5 MCG 120 PUFF INHALER INH SCH ×2 (06:31→18:15)
[2021-12-14] MEDS ORDERED: Potassium Chloride 20 MEQ TAB PO SCH (08:00)
[2021-12-14] MEDS: Doxycycline 100 MG CAP PO SCH ×2 (09:10→20:19)
[2021-12-14] MEDS: Furosemide 20 MG TAB PO SCH ×2 (09:11→14:10)
[2021-12-14] MEDS: methylPREDNISolone Sod Succ 40 MG VIAL IVP SCH ×2 (09:11→20:19)
[2021-12-14] MEDS: cefTRIAXone\\ROCEPHIN 1 GM in Sodium Chloride 0.9% 100 ML IVPB SCH (09:11)
[2021-12-14] MEDS: Folic Acid 1 MG TAB PO SCH (09:11)
[2021-12-14] MEDS: Aspirin Chewable 81 MG TAB PO SCH (09:11)
[2021-12-14] MEDS: Multivit, Therapeutic 1 TAB PO SCH (09:11)
[2021-12-14] MEDS ORDERED: Thiamine HCl 200 MG/2 ML VIAL SLOW IVP SCH (10:30)
[2021-12-14] MEDS: Cyanocobalamin (Vitamin B-12) 1,000 MCG TAB PO SCH (20:19)
[2021-12-14] MEDS: Enoxaparin Sodium 40 MG/0.4 ML SYRINGE SC SCH (20:19)
[2021-12-14] MEDS: Thiamine 100 MG TAB PO SCH (20:19)
[2021-12-14] MEDS: pyridOXINE 50 MG (B6) TAB PO SCH (20:20)
[2021-12-15] MEDS: Levothyroxine Sodium 112 MCG TAB PO SCH (06:16)
[2021-12-15] MEDS: Mometasone 200 MCG/Formoterol 5 MCG 120 PUFF INHALER INH SCH ×2 (08:14→19:05)
[2021-12-15] MEDS: cefTRIAXone\\ROCEPHIN 1 GM in Sodium Chloride 0.9% 100 ML IVPB SCH (09:45)
[2021-12-15] MEDS: Furosemide 20 MG TAB PO SCH ×2 (09:49→15:38)
[2021-12-15] MEDS: Aspirin Chewable 81 MG TAB PO SCH (09:49)
[2021-12-15] MEDS: Multivit, Therapeutic 1 TAB PO SCH (09:49)
[2021-12-15] MEDS: Doxycycline 100 MG CAP PO SCH ×2 (09:49→20:11)
[2021-12-15] MEDS: Folic Acid 1 MG TAB PO SCH (09:49)
[2021-12-15] MEDS: methylPREDNISolone Sod Succ 40 MG VIAL IVP SCH (09:50)
[2021-12-15] MEDS: Thiamine 100 MG TAB PO SCH (20:10)
[2021-12-15] MEDS: Enoxaparin Sodium 40 MG/0.4 ML SYRINGE SC SCH (20:11)
[2021-12-15] MEDS: pyridOXINE 50 MG (B6) TAB PO SCH (20:11)
[2021-12-15] MEDS: Cyanocobalamin (Vitamin B-12) 1,000 MCG TAB PO SCH (20:11)
[2021-12-16] MEDS: Levothyroxine Sodium 112 MCG TAB PO SCH (05:11)
[2021-12-16] MEDS: predniSONE 20 MG TAB PO SCH (07:42)
[2021-12-16] MEDS: Aspirin Chewable 81 MG TAB PO SCH (07:42)
[2021-12-16] MEDS: Furosemide 20 MG TAB PO SCH ×2 (07:42→14:11)
[2021-12-16] MEDS: Doxycycline 100 MG CAP PO SCH (07:42)
[2021-12-16] MEDS: Folic Acid 1 MG TAB PO SCH (07:42)
[2021-12-16] MEDS: Multivit, Therapeutic 1 TAB PO SCH (07:42)
[2021-12-16] MEDS: cefTRIAXone\\ROCEPHIN 1 GM in Sodium Chloride 0.9% 100 ML IVPB SCH (07:43)
[2021-12-16] MEDS: Mometasone 200 MCG/Formoterol 5 MCG 120 PUFF INHALER INH SCH ×2 (08:13→19:00)
[2021-12-16 12:54] LABS: Anion Gap 15 mmol/L (10-20); BUN (Urea Nitrogen) 35 mg/dL (9.8-20.1); Calc. Creatinine Clearance 99 mL/min (70-130); Calcium 9.4 mg/dL (7.8-10.44); Carbon Dioxide 32 mmol/L (23-31); Chloride 96 mmol/L (98-107); Estimated GFR 77; Glucose 199 mg/dL (80-115); Potassium 3.6 mmol/L (3.5-5.1); Sodium 139 mmol/L (136-145)
[2021-12-16] MEDS: pyridOXINE 50 MG (B6) TAB PO SCH (20:29)
[2021-12-16] MEDS: Cyanocobalamin (Vitamin B-12) 1,000 MCG TAB PO SCH (20:29)
[2021-12-16] MEDS: Thiamine 100 MG TAB PO SCH (20:29)
[2021-12-16] MEDS: Enoxaparin Sodium 40 MG/0.4 ML SYRINGE SC SCH (20:30)
[2021-12-17] MEDS: Levothyroxine Sodium 112 MCG TAB PO SCH (05:52)
[2021-12-17] MEDS: Mometasone 200 MCG/Formoterol 5 MCG 120 PUFF INHALER INH SCH (07:11)
[2021-12-17] MEDS: Aspirin Chewable 81 MG TAB PO SCH (08:57)
[2021-12-17] MEDS: predniSONE 20 MG TAB PO SCH (08:57)
[2021-12-17] MEDS: Folic Acid 1 MG TAB PO SCH (08:58)
[2021-12-17] MEDS: Multivit, Therapeutic 1 TAB PO SCH (08:58)
[2021-12-17 09:04] LABS: Anion Gap 13 mmol/L (10-20); BUN (Urea Nitrogen) 30 mg/dL (9.8-20.1); Calc. Creatinine Clearance 122 mL/min (70-130); Calcium 9.4 mg/dL (7.8-10.44); Carbon Dioxide 32 mmol/L (23-31); Chloride 100 mmol/L (98-107); Estimated GFR 95; Glucose 129 mg/dL (80-115); Potassium 3.1 mmol/L (3.5-5.1); Sodium 142 mmol/L (136-145)
[2021-12-17] MEDS ORDERED: Potassium Chloride 20 MEQ TAB PO SCH (11:00)
[2021-12-17] MEDS: Furosemide 20 MG TAB PO SCH ×2 (11:34→14:51)
[2021-12-17 12:40] LABS: Base Excess 7.4 mEq/L (-2.0 to +3.0); Calcium, Ionized (venous) 1.12 mmol/L (1.16-1.32); Chloride (VBG) 97 mmol/L (98-106); Potassium (VBG) 3.95 mmol/L (3.70-5.30); Sodium 138.6 mmol/L (133-146); pH (venous) 7.46 (7.32-7.43)
[2021-12-17 12:41] LABS: Actual Bicarbonate (HCO3v) 32 mEq/L (22-28)
[2021-12-17] MEDS: Enoxaparin Sodium 40 MG/0.4 ML SYRINGE SC SCH (19:53)
[2021-12-17] MEDS: Thiamine 100 MG TAB PO SCH (19:54)
[2021-12-17] MEDS: Cyanocobalamin (Vitamin B-12) 1,000 MCG TAB PO SCH (19:54)
[2021-12-17] MEDS: pyridOXINE 50 MG (B6) TAB PO SCH (19:54)
[2021-12-18] MEDS: Mometasone 200 MCG/Formoterol 5 MCG 120 PUFF INHALER INH SCH ×3 (02:48→19:24)
[2021-12-18] MEDS: Levothyroxine Sodium 112 MCG TAB PO SCH (05:01)
[2021-12-18] MEDS ORDERED: predniSONE 5 MG TAB PO SCH (08:00)
[2021-12-18] MEDS: Furosemide 20 MG TAB PO SCH ×2 (08:44→13:32)
[2021-12-18] MEDS: Multivit, Therapeutic 1 TAB PO SCH (08:45)
[2021-12-18] MEDS: Aspirin Chewable 81 MG TAB PO SCH (08:45)
[2021-12-18] MEDS: Folic Acid 1 MG TAB PO SCH (08:47)
[2021-12-18] MEDS ORDERED: Polyethylene Glycol 3350 17 GM Packet PO SCH (09:00)
[2021-12-18 09:15] LABS: Anion Gap 13 mmol/L (10-20); BUN (Urea Nitrogen) 23 mg/dL (9.8-20.1); Calc. Creatinine Clearance 129 mL/min (70-130); Calcium 9.5 mg/dL (7.8-10.44); Carbon Dioxide 29 mmol/L (23-31); Chloride 101 mmol/L (98-107); Estimated GFR 98; Glucose 133 mg/dL (80-115); Potassium 3.6 mmol/L (3.5-5.1); Sodium 139 mmol/L (136-145)
[2021-12-18 15:51] VITALS: BP 100/63; TEMP 98.1
[2021-12-18] MEDS ORDERED: Nicotine 14 MG PATCH TOP SCH (17:00)
[2021-12-18] MEDS ORDERED: Senokot S 8.6-50 MG TAB PO SCH (21:00)
[2021-12-19] MEDS ORDERED: predniSONE 5 MG TAB PO SCH (08:00)
[2021-12-19] MEDS ORDERED: predniSONE 20 MG TAB PO SCH (08:00)
== END 2021-12-18 22:21 | DRG 291 ==
LOC: ERS 13:47 → T4-B 18:08 → OBSVTOIN 18:08 → IMCU/EMU 12-10 18:54 → SURG A 12-15 17:11
PROVIDERS: ADMIT Family Medicine; ATTEND Family Medicine
PROC: 5A09357 Assistance with Respiratory Ventilation, Less than 24 Consecutive Hours, Continuous Positive Airway Pressure (ICD-10-PCS; principal; 2021-12-10)
PROC: 30233J1 Transfusion of Nonautologous Serum Albumin into Peripheral Vein, Percutaneous Approach (ICD-10-PCS; 2021-12-10)
DX: I11.0 Hypertensive heart disease with heart failure (principal); G93.41 Metabolic encephalopathy; J96.21 Acute and chronic respiratory failure with hypoxia; J96.22 Acute and chronic respiratory failure with hypercapnia; I50.33 Acute on chronic diastolic (congestive) heart failure; J44.1 Chronic obstructive pulmonary disease with (acute) exacerbation; R44.3 Hallucinations, unspecified; E87.3 Alkalosis; E66.2 Morbid (severe) obesity with alveolar hypoventilation; Z20.822 Contact with and (suspected) exposure to COVID-19; E78.5 Hyperlipidemia, unspecified; E03.9 Hypothyroidism, unspecified; E83.42 Hypomagnesemia; F31.9 Bipolar disorder, unspecified; F41.9 Anxiety disorder, unspecified; F10.20 Alcohol dependence, uncomplicated; E87.6 Hypokalemia; Z91.018 Allergy to other foods; Z88.8 Allergy status to other drugs, medicaments and biological substances; Z88.5 Allergy status to narcotic agent; Z99.81 Dependence on supplemental oxygen; Z98.890 Other specified postprocedural states; Z90.710 Acquired absence of both cervix and uterus; Z87.891 Personal history of nicotine dependence; Z79.51 Long term (current) use of inhaled steroids; Z79.82 Long term (current) use of aspirin; Z79.899 Other long term (current) drug therapy; Z68.39 Body mass index [BMI] 39.0-39.9, adult
CPT/HCPCS: 36415; 36600; 51701; 70450; 71045; 80048; 80053; 80306; 80307; 81003; 81015; 82140; 82805; 83605; 83735; 83880; 84100; 84484; 85025; 85610; 85730; 87040; 87086; 87811; 93005; 94640; 94660; 94760; J0696; J1650; J1940; J2920; J3411; J3475; J3490; J7050; J7512; J7620; P9047; U0002

== ENCOUNTER 2022-02-18 21:12 | Inpatient (IN) | payer OTHER ==
[2022-02-18] MEDS ORDERED: Albuterol Sulfate 2.5 mg/3 ml Neb ONE (21:25)
[2022-02-18 22:02] LABS: Actual Bicarbonate (HCO3a) 27.4 mEq/L (22-28); Analyzer IN Cardio ER; Base Excess (BEa) -1.1 mEq/L (-2.0 to +3.0); Calcium, Ionized (arterial) 1.12 mmol/L (1.12-1.30); Carboxyhemoglobin (COHb) 1.9 gm% (0.0-3.0); Hemoglobin (Hb) 13.8 g/dL (12.0-16.0); O2 Tension (PaO2), arterial 60.4 mmHg (> 80.0); Potassium - ABG Lab 3.88 mmol/L (3.70-5.30); pH, Arterial 7.26 (7.35-7.45)
[2022-02-18 23:00] LABS: CO2 Tension 63.1 mmHg (35.0-45.0)
[2022-02-18 23:01] LABS: ALV-art Gradient 145.925 mmHg (0-20); Puncture Site LRA
[2022-02-18 23:57] LABS: SARS-CoV-2 NAA Rapid Test Not Detected (NotDetected)
[2022-02-19] MEDS ORDERED: Ondansetron PF 4 MG/2 ML Vial IVP PRN (01:15)
[2022-02-19] MEDS ORDERED: Ondansetron ODT 4 MG TAB SL PRN (01:15)
[2022-02-19] MEDS: Sodium Chloride 0.9% 1,000 ML IV SCH ×2 (01:28→08:08)
[2022-02-19] MEDS ORDERED: Propofol BOLUS 1,000 MG/100 ML VIAL IV PRN (01:45)
[2022-02-19] MEDS ORDERED: DISCONTINUE PREVIOUS NARCOTIC PAIN MEDICATIONS AND BENZODIAZEPINES FS SCH (01:45)
[2022-02-19] MEDS ORDERED: NOREPINEPHRINE 8 MG/250 ML-D5W 250 ML IVPB SCH (01:45)
[2022-02-19] MEDS ORDERED: Fentanyl BOLUS 250 ML IVPB PRN (01:45)
[2022-02-19] MEDS ORDERED: Morphine 4 MG/ML VIAL SLOW IVP PRN (01:45)
[2022-02-19] MEDS: Propofol 1,000 MG/100 ML VIAL IV PRN ×3 (03:00→17:42)
[2022-02-19] MEDS ORDERED: VANCOMYCIN 2 GRAM/500 ML BAG 2 GM in Premix Bag 1 BAG IVPB SCH (03:00)
[2022-02-19 03:05] LABS: #Eosinphils 0.1 thou/uL (0.0-0.7); #Lymphocytes 0.4 thou/uL (1.20-3.40); #Monocytes 0.3 thou/uL (0.11-0.59); #Neutrophils 18.2 thou/uL (1.40-6.50); %Basophils 0.2 % (0.0-1.0); %Eosinophils 0.3 % (0.0-10.0); %Lymphocytes 2.3 % (21.0-51.0); %Monocytes 1.5 % (0.0-10.0); %Neutrophils 95.7 % (42.0-75.0); Hemoglobin 12.9 g/dL (12.0-16.0); Mean Corpuscular HGB CONC 31.8 g/dL (32.0-36.0); Mean Corpuscular Hemoglobin 32.3 pg (27.0-31.0); Platelet Count 211 10x3/uL (130-400); RBC Distribution Width 13.1 % (11.5-14.5); Red Blood Cell (RBC) Count 3.98 mill/uL (4.20-5.40)
[2022-02-19 03:25] LABS: ALT (SGPT) 149 U/L (8-55); AST (SGOT) 261 U/L (5-34); Albumin 3.2 g/dL (3.4-4.8); Alkaline Phosphatase 64 U/L (40-110); Anion Gap 16 mmol/L (10-20); BUN (Urea Nitrogen) 15 mg/dL (9.8-20.1); Calc. Creatinine Clearance 84 mL/min (70-130); Calcium 8.6 mg/dL (7.8-10.44); Carbon Dioxide 26 mmol/L (23-31); Chloride 100 mmol/L (98-107); Estimated GFR 54; Globulin 3.1 g/dL (2.4-3.5); Glucose 248 mg/dL (80-115); Magnesium 2.1 mg/dL (1.6-2.6); Potassium 3.2 mmol/L (3.5-5.1); Protein, Total 6.3 g/dL (5.8-8.1); Sodium 139 mmol/L (136-145)
[2022-02-19 03:28] LABS: Troponin I 0.195 ng/mL (< 0.028)
[2022-02-19] MEDS ORDERED: Potassium Bicarbonate/Cit Ac 20 MEQ TAB PER TUBE SCH (03:45)
[2022-02-19] MEDS ORDERED: Sodium Chloride 0.9% 1,000 ML IV SCH ×2 (03:45→09:15)
[2022-02-19] MEDS ORDERED: Albumin 25% 25 GM/100 ML BOT IVPB SCH (03:45)
[2022-02-19] MEDS ORDERED: Cefepime 2 GM in Sodium Chloride 0.9% 100 ML IVPB SCH (05:00)
[2022-02-19] MEDS: methylPREDNISolone Sod Succ 40 MG VIAL IVP SCH ×3 (05:19→17:42)
[2022-02-19] MEDS: Mometasone 200 MCG/Formoterol 5 MCG 120 PUFF INHALER INH SCH ×2 (07:10→18:16)
[2022-02-19 07:17] LABS: Actual Bicarbonate (HCO3a) 26.8 mEq/L (22-28); Base Excess (BEa) 1.5 mEq/L (-2.0 to +3.0); CO2 Tension 44.9 mmHg (35.0-45.0); Calcium, Ionized (arterial) 1.13 mmol/L (1.12-1.30); Carboxyhemoglobin (COHb) 0.7 gm% (0.0-3.0); Hemoglobin (Hb) 12.7 g/dL (12.0-16.0); Potassium - ABG Lab 3.37 mmol/L (3.70-5.30); pH, Arterial 7.39 (7.35-7.45)
[2022-02-19 07:20] LABS: O2 Tension (PaO2), arterial 53.3 mmHg (> 80.0); Puncture Site RRA
[2022-02-19 07:21] LABS: ALV-art Gradient 175.775 mmHg (0-20)
[2022-02-19 07:39] LABS: Bilirubin, Total 0.6 mg/dL (0.2-1.2)
[2022-02-19 07:52] LABS: Lactic Acid 5.8 mmol/L (0.5-2.2)
[2022-02-19 07:58] LABS: Troponin I 0.212 ng/mL (< 0.028)
[2022-02-19] MEDS: Famotidine 20 MG TAB PER TUBE SCH ×2 (08:08→20:26)
[2022-02-19] MEDS: Heparin 5,000 UNITS/ML VIAL SC SCH ×3 (08:08→20:26)
[2022-02-19] MEDS: Midazolam HCl 2 mg/2 ml Vial SLOW IVP PRN ×3 (09:07→20:26)
[2022-02-19] MEDS: Potassium Chloride 20 MEQ in Lactated Ringer's 1,000 ML IV SCH ×2 (09:24→17:45)
[2022-02-19 09:35] LABS: Amphetamine Not Detected (NotDetected); Barbiturates Screen Not Detected (NotDetected); Benzodiazepine Screen Not Detected (NotDetected); Cocaine Metabolite Screen Not Detected (NotDetected); Methadone Not Detected (NotDetected); Methamphetamine Not Detected (NotDetected); Opiate Screen Detected (NotDetected); Oxycodone Screen Not Detected (NotDetected); Phencyclidine (PCP) Not Detected (NotDetected); THC/Cannabinoid Screen Not Detected (NotDetected); Tricyclic Screen Not Detected (NotDetected)
[2022-02-19] MEDS ORDERED: Norepinephrine 8 MG in Dextrose 5% in Water 242 ML IVPB PRN (13:15)
[2022-02-19] MEDS ORDERED: Fentanyl CADD 100 ML ONE (13:29)
[2022-02-19] MEDS: Fentanyl CADD 100 ML IV SCH (13:32)
[2022-02-19] MEDS: Cefepime 1 GM in Sodium Chloride 0.9% 100 ML IVPB SCH (15:56)
[2022-02-20] MEDS: Potassium Chloride 20 MEQ in Lactated Ringer's 1,000 ML IV SCH (02:24)
[2022-02-20] MEDS: Vancomycin 1.5 GRAM/300 ML BAG 1.5 GM in Premix Bag 1 BAG IVPB SCH (02:24)
[2022-02-20] MEDS: Cefepime 1 GM in Sodium Chloride 0.9% 100 ML IVPB SCH (05:00)
[2022-02-20] MEDS: Propofol 1,000 MG/100 ML VIAL IV PRN ×5 (05:00→23:01)
[2022-02-20] MEDS: methylPREDNISolone Sod Succ 40 MG VIAL IVP SCH ×5 (05:00→23:01)
[2022-02-20 05:07] LABS: ALT (SGPT) 123 U/L (8-55); AST (SGOT) 124 U/L (5-34); Albumin 3.2 g/dL (3.4-4.8); Alkaline Phosphatase 56 U/L (40-110); Anion Gap 13 mmol/L (10-20); BUN (Urea Nitrogen) 14 mg/dL (9.8-20.1); Bilirubin, Total 0.4 mg/dL (0.2-1.2); Calc. Creatinine Clearance 128 mL/min (70-130); Calcium 9.1 mg/dL (7.8-10.44); Carbon Dioxide 27 mmol/L (23-31); Chloride 106 mmol/L (98-107); Estimated GFR 88; Globulin 2.9 g/dL (2.4-3.5); Glucose 179 mg/dL (80-115); Protein, Total 6.1 g/dL (5.8-8.1); Sodium 142 mmol/L (136-145)
[2022-02-20 05:17] LABS: Phosphorus 2.3 mg/dL (2.3-4.7)
[2022-02-20 06:01] LABS: Hemoglobin 12.7 g/dL (12.0-16.0); Mean Corpuscular HGB CONC 30.8 g/dL (32.0-36.0); Mean Corpuscular Hemoglobin 31.2 pg (27.0-31.0); Platelet Count 243 10x3/uL (130-400); RBC Distribution Width 13.9 % (11.5-14.5); Red Blood Cell (RBC) Count 4.07 mill/uL (4.20-5.40)
[2022-02-20 06:20] LABS: Band 27 % (5-11); Large Platelets SLIGHT; Lymphocytes 4 % (21-51); MDiff Complete? YES; Metamyelocyte 1 % (0-0); Monocytes 4 % (0-10); Neutrophil 64 % (42-75); Platelet Morphology Comment Appears Adequate; Polychromasia SLIGHT = 2-3 cells (100X) (0-2/hpf); Vacuoles SLIGHT
[2022-02-20] MEDS ORDERED: Fentanyl CADD 100 ML ONE (06:34)
[2022-02-20] MEDS: Fentanyl CADD 100 ML IV SCH (06:45)
[2022-02-20] MEDS: Midazolam HCl 2 mg/2 ml Vial SLOW IVP PRN ×2 (07:52→10:00)
[2022-02-20] MEDS: Famotidine 20 MG TAB PER TUBE SCH ×2 (07:53→20:37)
[2022-02-20] MEDS: Heparin 5,000 UNITS/ML VIAL SC SCH ×3 (07:53→20:37)
[2022-02-20] MEDS: Mometasone 200 MCG/Formoterol 5 MCG 120 PUFF INHALER INH SCH ×2 (08:12→18:39)
[2022-02-20 08:26] LABS: Actual Bicarbonate (HCO3a) 27.4 mEq/L (22-28); Base Excess (BEa) 0.9 mEq/L (-2.0 to +3.0); CO2 Tension 51.6 mmHg (35.0-45.0); Calcium, Ionized (arterial) 1.24 mmol/L (1.12-1.30); Carboxyhemoglobin (COHb) 0.4 gm% (0.0-3.0); Hemoglobin (Hb) 13.1 g/dL (12.0-16.0); O2 Tension (PaO2), arterial 61.6 mmHg (> 80.0); Potassium - ABG Lab 4.08 mmol/L (3.70-5.30); pH, Arterial 7.34 (7.35-7.45)
[2022-02-20] MEDS: Sodium Chloride 0.45% 1,000 ML IV SCH (09:42)
[2022-02-20] MEDS ORDERED: Vecuronium 10 MG VIAL ONE (10:02)
[2022-02-20] MEDS: Cefepime 2 GM in Sodium Chloride 0.9% 100 ML IVPB SCH (16:58)
[2022-02-21] MEDS: Rocuronium Bromide 10 MG/ML (10ML VIAL) IVP PRN ×2 (01:47→06:11)
[2022-02-21 02:09] LABS: Actual Bicarbonate (HCO3a) 24.6 mEq/L (22-28); Base Excess (BEa) -2.1 mEq/L (-2.0 to +3.0); CO2 Tension 49.9 mmHg (35.0-45.0); Calcium, Ionized (arterial) 1.27 mmol/L (1.12-1.30); Carboxyhemoglobin (COHb) 0.5 gm% (0.0-3.0); Hemoglobin (Hb) 14.3 g/dL (12.0-16.0); O2 Tension (PaO2), arterial 72.8 mmHg (> 80.0); Potassium - ABG Lab 3.69 mmol/L (3.70-5.30); Puncture Site LRA; pH, Arterial 7.31 (7.35-7.45)
[2022-02-21 02:10] LABS: ALV-art Gradient 114.375 mmHg (0-20)
[2022-02-21 02:13] LABS: #Basophils 0.1 thou/uL (0.0-0.2); #Monocytes 0.4 thou/uL (0.11-0.59); #Neutrophils 18.5 thou/uL (1.40-6.50); %Basophils 0.5 % (0.0-1.0); %Eosinophils 0.2 % (0.0-10.0); %Lymphocytes 4.8 % (21.0-51.0); %Monocytes 1.8 % (0.0-10.0); %Neutrophils 92.7 % (42.0-75.0); Hemoglobin 13.7 g/dL (12.0-16.0); Mean Corpuscular HGB CONC 31.2 g/dL (32.0-36.0); Mean Corpuscular Hemoglobin 31.3 pg (27.0-31.0); Mean Platelet Volume 9.7 fL (7.4-10.4); Platelet Count 228 10x3/uL (130-400); RBC Distribution Width 14.2 % (11.5-14.5); Red Blood Cell (RBC) Count 4.37 mill/uL (4.20-5.40)
[2022-02-21 02:31] LABS: Vancomycin, Trough 10.2 ug/mL
[2022-02-21 02:52] LABS: ALT (SGPT) 111 U/L (8-55); AST (SGOT) 72 U/L (5-34); Albumin 3.1 g/dL (3.4-4.8); Alkaline Phosphatase 56 U/L (40-110); Anion Gap 14 mmol/L (10-20); BUN (Urea Nitrogen) 20 mg/dL (9.8-20.1); Bilirubin, Total 0.4 mg/dL (0.2-1.2); Calc. Creatinine Clearance 122 mL/min (70-130); Calcium 9.1 mg/dL (7.8-10.44); Carbon Dioxide 24 mmol/L (23-31); Chloride 107 mmol/L (98-107); Estimated GFR 83; Glucose 194 mg/dL (80-115); Magnesium 2.1 mg/dL (1.6-2.6); Potassium 3.7 mmol/L (3.5-5.1); Protein, Total 6.1 g/dL (5.8-8.1); Sodium 141 mmol/L (136-145)
[2022-02-21] MEDS: Vancomycin 1.5 GRAM/300 ML BAG 1.5 GM in Premix Bag 1 BAG IVPB SCH (03:38)
[2022-02-21] MEDS ORDERED: VANCOMYCIN 2 GRAM/500 ML BAG 2 GM in Premix Bag 1 BAG IVPB SCH (04:00)
[2022-02-21] MEDS: methylPREDNISolone Sod Succ 40 MG VIAL IVP SCH ×3 (05:02→16:45)
[2022-02-21] MEDS: Levothyroxine Sodium 88 MCG TAB PER TUBE SCH (05:02)
[2022-02-21] MEDS: Cefepime 2 GM in Sodium Chloride 0.9% 100 ML IVPB SCH ×2 (05:02→16:45)
[2022-02-21] MEDS: Sodium Chloride 0.45% 1,000 ML IV SCH (05:13)
[2022-02-21] MEDS: Mometasone 200 MCG/Formoterol 5 MCG 120 PUFF INHALER INH SCH ×2 (06:54→19:01)
[2022-02-21 07:03] LABS: Actual Bicarbonate (HCO3a) 24.5 mEq/L (22-28); Calcium, Ionized (arterial) 1.22 mmol/L (1.12-1.30); Carboxyhemoglobin (COHb) 0.5 gm% (0.0-3.0); Hemoglobin (Hb) 14.3 g/dL (12.0-16.0); Potassium - ABG Lab 3.71 mmol/L (3.70-5.30); pH, Arterial 7.36 (7.35-7.45)
[2022-02-21 07:05] LABS: Puncture Site RRA
[2022-02-21] MEDS: Famotidine 20 MG TAB PER TUBE SCH ×2 (09:01→20:06)
[2022-02-21] MEDS: Propofol 1,000 MG/100 ML VIAL IV PRN ×2 (09:01→16:54)
[2022-02-21] MEDS: Heparin 5,000 UNITS/ML VIAL SC SCH ×3 (09:01→20:06)
[2022-02-21] MEDS ORDERED: Dextrose 5% in Water 1,000 ML IV PRN (09:15)
[2022-02-21] MEDS ORDERED: Dextrose 50% Abboject 50 ML SYRINGE IVP PRN (09:15)
[2022-02-21] MEDS ORDERED: Furosemide 40 MG/4 ML VIAL SLOW IVP SCH (09:30)
[2022-02-21] MEDS ORDERED: Metoclopramide HCl 10 MG/2 ML VIAL IVP PRN (10:54)
[2022-02-21] MEDS: Metoclopramide HCl 10 MG/2 ML VIAL IVP SCH ×2 (12:46→16:45)
[2022-02-21] MEDS: Midazolam HCl 2 mg/2 ml Vial SLOW IVP PRN ×3 (12:46→19:51)
[2022-02-21] MEDS: HumaLOG 300 UNITS/3 ML VIAL SC PRN (13:01)
[2022-02-21] MEDS: Furosemide 40 MG/4 ML VIAL SLOW IVP SCH (14:25)
[2022-02-21] MEDS ORDERED: Thiamine HCl 200 MG/2 ML VIAL SLOW IVP SCH (16:30)
[2022-02-21] MEDS: Dexmedetomidine 1,000 MCG in Sodium Chloride 0.9% 250 ML 240 ML IVPB SCH (16:39)
[2022-02-22] MEDS: Midazolam HCl 2 mg/2 ml Vial SLOW IVP PRN ×2 (00:18→04:22)
[2022-02-22] MEDS: methylPREDNISolone Sod Succ 40 MG VIAL IVP SCH ×5 (00:22→23:33)
[2022-02-22] MEDS: Metoclopramide HCl 10 MG/2 ML VIAL IVP SCH ×5 (00:23→23:34)
[2022-02-22] MEDS: HumaLOG 300 UNITS/3 ML VIAL SC PRN ×5 (01:05→23:34)
[2022-02-22] MEDS: Propofol 1,000 MG/100 ML VIAL IV PRN ×3 (03:39→15:41)
[2022-02-22] MEDS: Cefepime 2 GM in Sodium Chloride 0.9% 100 ML IVPB SCH ×2 (04:24→15:41)
[2022-02-22 04:51] LABS: ALT (SGPT) 80 U/L (8-55); AST (SGOT) 37 U/L (5-34); Albumin 3.2 g/dL (3.4-4.8); Alkaline Phosphatase 55 U/L (40-110); Anion Gap 14 mmol/L (10-20); BUN (Urea Nitrogen) 32 mg/dL (9.8-20.1); Bilirubin, Total 0.4 mg/dL (0.2-1.2); Calc. Creatinine Clearance 117 mL/min (70-130); Calcium 8.7 mg/dL (7.8-10.44); Carbon Dioxide 26 mmol/L (23-31); Chloride 107 mmol/L (98-107); Estimated GFR 78; Globulin 2.9 g/dL (2.4-3.5); Glucose 179 mg/dL (80-115); Magnesium 2.1 mg/dL (1.6-2.6); Potassium 3.8 mmol/L (3.5-5.1); Protein, Total 6.1 g/dL (5.8-8.1); Sodium 143 mmol/L (136-145)
[2022-02-22 05:39] LABS: Band 13 % (5-11); Hemoglobin 13.5 g/dL (12.0-16.0); Lymphocytes 1 % (21-51); MDiff Complete? YES; Mean Corpuscular HGB CONC 31.7 g/dL (32.0-36.0); Mean Corpuscular Hemoglobin 31.8 pg (27.0-31.0); Mean Platelet Volume 10.2 fL (7.4-10.4); Monocytes 5 % (0-10); Neutrophil 81 % (42-75); Platelet Count 222 10x3/uL (130-400); Red Blood Cell (RBC) Count 4.26 mill/uL (4.20-5.40); White Blood Cell (WBC) Count 21.3 10x3/uL (4.8-10.8)
[2022-02-22] MEDS: Levothyroxine Sodium 88 MCG TAB PER TUBE SCH (05:59)
[2022-02-22] MEDS: Furosemide 40 MG/4 ML VIAL SLOW IVP SCH ×2 (05:59→13:04)
[2022-02-22] MEDS: Dexmedetomidine 1,000 MCG in Sodium Chloride 0.9% 250 ML 240 ML IVPB SCH ×2 (06:08→15:38)
[2022-02-22] MEDS: Mometasone 200 MCG/Formoterol 5 MCG 120 PUFF INHALER INH SCH ×2 (07:49→19:11)
[2022-02-22] MEDS: Heparin 5,000 UNITS/ML VIAL SC SCH ×3 (08:41→20:15)
[2022-02-22] MEDS: Famotidine 20 MG TAB PER TUBE SCH ×2 (08:48→20:04)
[2022-02-22] MEDS: Thiamine HCl 200 MG/2 ML VIAL SLOW IVP SCH (08:53)
[2022-02-22] MEDS ORDERED: Thiamine HCl 200 MG/2 ML VIAL SLOW IVP SCH (09:00)
[2022-02-22] MEDS ORDERED: FLU VACC QS2022-23(6MOS UP)/PF 60 MCG/0.5 ML SYRINGE IM ONE (09:00)
[2022-02-22] MEDS: Lorazepam 2 MG/ML VIAL SLOW IVP PRN (19:19)
[2022-02-23] MEDS: Propofol 1,000 MG/100 ML VIAL IV PRN ×4 (01:08→22:04)
[2022-02-23] MEDS: Cefepime 2 GM in Sodium Chloride 0.9% 100 ML IVPB SCH ×2 (04:53→17:35)
[2022-02-23] MEDS: Dexmedetomidine 1,000 MCG in Sodium Chloride 0.9% 250 ML 240 ML IVPB SCH ×2 (05:06→17:41)
[2022-02-23] MEDS: Metoclopramide HCl 10 MG/2 ML VIAL IVP SCH ×4 (05:06→23:27)
[2022-02-23] MEDS: Furosemide 40 MG/4 ML VIAL SLOW IVP SCH ×2 (05:06→14:38)
[2022-02-23] MEDS: Levothyroxine Sodium 88 MCG TAB PER TUBE SCH (05:07)
[2022-02-23] MEDS: methylPREDNISolone Sod Succ 40 MG VIAL IVP SCH ×4 (05:07→23:27)
[2022-02-23] MEDS: HumaLOG 300 UNITS/3 ML VIAL SC PRN ×4 (05:23→23:27)
[2022-02-23] MEDS: Mometasone 200 MCG/Formoterol 5 MCG 120 PUFF INHALER INH SCH ×2 (08:12→18:14)
[2022-02-23] MEDS: Thiamine HCl 200 MG/2 ML VIAL SLOW IVP SCH (09:56)
[2022-02-23] MEDS: Heparin 5,000 UNITS/ML VIAL SC SCH ×3 (09:57→20:57)
[2022-02-23] MEDS: Famotidine 20 MG TAB PER TUBE SCH ×2 (09:58→20:57)
[2022-02-24] MEDS: Midazolam HCl 2 mg/2 ml Vial SLOW IVP PRN (02:54)
[2022-02-24 04:49] LABS: ALT (SGPT) 67 U/L (8-55); AST (SGOT) 32 U/L (5-34); Albumin 3.2 g/dL (3.4-4.8); Alkaline Phosphatase 55 U/L (40-110); Anion Gap 13 mmol/L (10-20); BUN (Urea Nitrogen) 44 mg/dL (9.8-20.1); Bilirubin, Total 0.5 mg/dL (0.2-1.2); Calc. Creatinine Clearance 130 mL/min (70-130); Calcium 8.5 mg/dL (7.8-10.44); Carbon Dioxide 34 mmol/L (23-31); Chloride 100 mmol/L (98-107); Estimated GFR 88; Globulin 2.8 g/dL (2.4-3.5); Glucose 206 mg/dL (80-115); Magnesium 2.2 mg/dL (1.6-2.6); Phosphorus 3.6 mg/dL (2.3-4.7); Potassium 3.5 mmol/L (3.5-5.1); Sodium 143 mmol/L (136-145)
[2022-02-24] MEDS: Furosemide 40 MG/4 ML VIAL SLOW IVP SCH ×2 (05:01→14:19)
[2022-02-24] MEDS: methylPREDNISolone Sod Succ 40 MG VIAL IVP SCH ×3 (05:01→17:30)
[2022-02-24] MEDS: Levothyroxine Sodium 88 MCG TAB PER TUBE SCH (05:01)
[2022-02-24] MEDS: Cefepime 2 GM in Sodium Chloride 0.9% 100 ML IVPB SCH ×2 (05:01→17:29)
[2022-02-24] MEDS: Metoclopramide HCl 10 MG/2 ML VIAL IVP SCH ×3 (05:01→17:30)
[2022-02-24] MEDS: Propofol 1,000 MG/100 ML VIAL IV PRN ×3 (05:06→18:24)
[2022-02-24 05:20] LABS: Band 5 % (5-11); Hemoglobin 13.1 g/dL (12.0-16.0); Lymphocytes 3 % (21-51); MDiff Complete? YES; Mean Corpuscular HGB CONC 31.7 g/dL (32.0-36.0); Mean Corpuscular Hemoglobin 31.3 pg (27.0-31.0); Mean Corpuscular Volume 98.9 fl (78.0-98.0); Mean Platelet Volume 9.6 fL (7.4-10.4); Monocytes 6 % (0-10); Neutrophil 86 % (42-75); Platelet Count 210 10x3/uL (130-400); RBC Distribution Width 13.4 % (11.5-14.5); Red Blood Cell (RBC) Count 4.18 mill/uL (4.20-5.40); White Blood Cell (WBC) Count 17.1 10x3/uL (4.8-10.8)
[2022-02-24] MEDS: Dexmedetomidine 1,000 MCG in Sodium Chloride 0.9% 250 ML 240 ML IVPB SCH ×2 (06:12→17:30)
[2022-02-24] MEDS: HumaLOG 300 UNITS/3 ML VIAL SC PRN ×2 (06:37→12:10)
[2022-02-24 07:17] LABS: Actual Bicarbonate (HCO3a) 34.2 mEq/L (22-28); Base Excess (BEa) 9.5 mEq/L (-2.0 to +3.0); CO2 Tension 46.4 mmHg (35.0-45.0); Calcium, Ionized (arterial) 1.16 mmol/L (1.12-1.30); Carboxyhemoglobin (COHb) 0.9 gm% (0.0-3.0); Hemoglobin (Hb) 14.7 g/dL (12.0-16.0); Potassium - ABG Lab 3.38 mmol/L (3.70-5.30); pH, Arterial 7.49 (7.35-7.45)
[2022-02-24] MEDS: Mometasone 200 MCG/Formoterol 5 MCG 120 PUFF INHALER INH SCH ×2 (07:51→18:09)
[2022-02-24 07:55] LABS: O2 Tension (PaO2), arterial 53.1 mmHg (> 80.0); Puncture Site RRA
[2022-02-24] MEDS ORDERED: Senokot 8.6 MG TAB PER TUBE PRN (08:32)
[2022-02-24] MEDS: Famotidine 20 MG TAB PER TUBE SCH ×2 (09:53→21:27)
[2022-02-24] MEDS: Heparin 5,000 UNITS/ML VIAL SC SCH ×3 (09:53→21:27)
[2022-02-24] MEDS: Thiamine HCl 200 MG/2 ML VIAL SLOW IVP SCH (09:53)
[2022-02-25] MEDS: Propofol 1,000 MG/100 ML VIAL IV PRN
[2022-02-25] MEDS: Senokot 8.6 MG TAB PER TUBE PRN (00:21)
[2022-02-25] MEDS: HumaLOG 300 UNITS/3 ML VIAL SC PRN ×4 (00:21→18:00)
[2022-02-25 04:59] LABS: Hemoglobin 13.9 g/dL (12.0-16.0); Mean Corpuscular HGB CONC 32.5 g/dL (32.0-36.0); Mean Corpuscular Hemoglobin 32.2 pg (27.0-31.0); Mean Corpuscular Volume 99.1 fl (78.0-98.0); Mean Platelet Volume 9.4 fL (7.4-10.4); Platelet Count 213 10x3/uL (130-400); RBC Distribution Width 13.3 % (11.5-14.5); Red Blood Cell (RBC) Count 4.31 mill/uL (4.20-5.40); White Blood Cell (WBC) Count 19.6 10x3/uL (4.8-10.8)
[2022-02-25] MEDS: Dexmedetomidine 1,000 MCG in Sodium Chloride 0.9% 250 ML 240 ML IVPB SCH (05:02)
[2022-02-25] MEDS: Metoclopramide HCl 10 MG/2 ML VIAL IVP SCH ×5 (05:03→23:02)
[2022-02-25] MEDS: Cefepime 2 GM in Sodium Chloride 0.9% 100 ML IVPB SCH ×2 (05:03→18:34)
[2022-02-25] MEDS: Levothyroxine Sodium 88 MCG TAB PER TUBE SCH (05:04)
[2022-02-25] MEDS: methylPREDNISolone Sod Succ 40 MG VIAL IVP SCH ×5 (05:04→23:00)
[2022-02-25] MEDS: Furosemide 40 MG/4 ML VIAL SLOW IVP SCH ×2 (05:04→14:54)
[2022-02-25 05:07] LABS: ALT (SGPT) 63 U/L (8-55); AST (SGOT) 28 U/L (5-34); Albumin 3.2 g/dL (3.4-4.8); Alkaline Phosphatase 58 U/L (40-110); Anion Gap 12 mmol/L (10-20); BUN (Urea Nitrogen) 42 mg/dL (9.8-20.1); Calc. Creatinine Clearance 114 mL/min (70-130); Calcium 8.9 mg/dL (7.8-10.44); Carbon Dioxide 36 mmol/L (23-31); Chloride 98 mmol/L (98-107); Estimated GFR 80; Glucose 206 mg/dL (80-115); Magnesium 2.3 mg/dL (1.6-2.6); Phosphorus 3.6 mg/dL (2.3-4.7); Potassium 3.4 mmol/L (3.5-5.1); Protein, Total 6.2 g/dL (5.8-8.1); Sodium 143 mmol/L (136-145)
[2022-02-25 05:25] LABS: Lymphocytes 8 % (21-51); MDiff Complete? YES; Monocytes 5 % (0-10); Neutrophil 87 % (42-75)
[2022-02-25 06:41] LABS: Bilirubin, Total 0.6 mg/dL (0.2-1.2)
[2022-02-25] MEDS ORDERED: Vecuronium 10 MG VIAL IV SCH (07:15)
[2022-02-25] MEDS: Mometasone 200 MCG/Formoterol 5 MCG 120 PUFF INHALER INH SCH ×2 (07:15→18:24)
[2022-02-25 07:24] LABS: Actual Bicarbonate (HCO3a) 37.7 mEq/L (22-28); Base Excess (BEa) 12.5 mEq/L (-2.0 to +3.0); CO2 Tension 49.3 mmHg (35.0-45.0); Calcium, Ionized (arterial) 1.12 mmol/L (1.12-1.30); Carboxyhemoglobin (COHb) 0.4 gm% (0.0-3.0); Hemoglobin (Hb) 14.6 g/dL (12.0-16.0); Potassium - ABG Lab 3.25 mmol/L (3.70-5.30)
[2022-02-25 07:26] LABS: O2 Tension (PaO2), arterial 56.7 mmHg (> 80.0)
[2022-02-25 07:27] LABS: ALV-art Gradient 131.225 mmHg (0-20); Puncture Site RRA
[2022-02-25] MEDS: Heparin 5,000 UNITS/ML VIAL SC SCH ×3 (09:56→20:43)
[2022-02-25] MEDS: Thiamine HCl 200 MG/2 ML VIAL SLOW IVP SCH (09:56)
[2022-02-25] MEDS: Famotidine 20 MG TAB PER TUBE SCH ×2 (09:56→20:43)
[2022-02-25] MEDS ORDERED: hydrALAZINE 20 MG/ML VIAL SLOW IVP PRN (21:47)
[2022-02-25] MEDS ORDERED: Ondansetron PF 4 MG/2 ML Vial IVP PRN (22:58)
[2022-02-25] MEDS ORDERED: Electrolyte Replacement Protocol FS PRN (23:00)
[2022-02-25 23:37] LABS: ALT (SGPT) 92 U/L (8-55); AST (SGOT) 78 U/L (5-34); Albumin 3.6 g/dL (3.4-4.8); Alkaline Phosphatase 66 U/L (40-110); Anion Gap 15 mmol/L (10-20); BUN (Urea Nitrogen) 48 mg/dL (9.8-20.1); Bilirubin, Total 1.2 mg/dL (0.2-1.2); Calc. Creatinine Clearance 138 mL/min (70-130); Calcium 9.2 mg/dL (7.8-10.44); Carbon Dioxide 36 mmol/L (23-31); Chloride 97 mmol/L (98-107); Estimated GFR 98; Globulin 2.9 g/dL (2.4-3.5); Glucose 169 mg/dL (80-115); Magnesium 2.1 mg/dL (1.6-2.6); Potassium 3.2 mmol/L (3.5-5.1); Protein, Total 6.5 g/dL (5.8-8.1); Sodium 145 mmol/L (136-145)
[2022-02-26] MEDS: Potassium Chloride 20 MEQ in Premix Bag 1 BAG IVPB SCH ×2 (00:33→02:54)
[2022-02-26] MEDS: Levothyroxine Sodium 88 MCG TAB PER TUBE SCH (05:22)
[2022-02-26] MEDS: Metoclopramide HCl 10 MG/2 ML VIAL IVP SCH ×3 (05:22→17:18)
[2022-02-26] MEDS: Furosemide 40 MG/4 ML VIAL SLOW IVP SCH ×2 (05:22→14:43)
[2022-02-26] MEDS: methylPREDNISolone Sod Succ 40 MG VIAL IVP SCH ×3 (05:22→17:18)
[2022-02-26 05:33] LABS: Hemoglobin 13.9 g/dL (12.0-16.0); Mean Corpuscular HGB CONC 31.5 g/dL (32.0-36.0); Mean Corpuscular Hemoglobin 31.3 pg (27.0-31.0); Mean Corpuscular Volume 99.4 fl (78.0-98.0); Mean Platelet Volume 9.8 fL (7.4-10.4); Platelet Count 269 10x3/uL (130-400); RBC Distribution Width 13.3 % (11.5-14.5); Red Blood Cell (RBC) Count 4.43 mill/uL (4.20-5.40); White Blood Cell (WBC) Count 23.3 10x3/uL (4.8-10.8)
[2022-02-26 05:42] LABS: ALT (SGPT) 110 U/L (8-55); AST (SGOT) 74 U/L (5-34); Albumin 3.5 g/dL (3.4-4.8); Alkaline Phosphatase 70 U/L (40-110); BUN (Urea Nitrogen) 50 mg/dL (9.8-20.1); Bilirubin, Total 0.9 mg/dL (0.2-1.2); Calc. Creatinine Clearance 130 mL/min (70-130); Calcium 9.4 mg/dL (7.8-10.44); Estimated GFR 95; Globulin 2.9 g/dL (2.4-3.5); Glucose 176 mg/dL (80-115); Magnesium 2.4 mg/dL (1.6-2.6); Phosphorus 3.7 mg/dL (2.3-4.7); Protein, Total 6.4 g/dL (5.8-8.1)
[2022-02-26 05:57] LABS: Anion Gap 21 mmol/L (10-20); Carbon Dioxide 32 mmol/L (23-31); Chloride 98 mmol/L (98-107); Potassium 3.5 mmol/L (3.5-5.1); Sodium 147 mmol/L (136-145)
[2022-02-26] MEDS: HumaLOG 300 UNITS/3 ML VIAL SC PRN ×4 (06:16→21:16)
[2022-02-26 06:34] LABS: Band 6 % (5-11); Lymphocytes 10 % (21-51); MDiff Complete? YES; Neutrophil 84 % (42-75)
[2022-02-26] MEDS: Mometasone 200 MCG/Formoterol 5 MCG 120 PUFF INHALER INH SCH ×2 (06:53→18:30)
[2022-02-26] MEDS: Thiamine HCl 200 MG/2 ML VIAL SLOW IVP SCH (08:24)
[2022-02-26] MEDS: Famotidine 20 MG TAB PER TUBE SCH ×2 (08:24→21:03)
[2022-02-26] MEDS: Heparin 5,000 UNITS/ML VIAL SC SCH ×3 (08:24→21:03)
[2022-02-26] MEDS ORDERED: Lisinopril 20 MG TAB PO SCH (13:15)
[2022-02-26 13:48] LABS: Potassium 3.4 mmol/L (3.5-5.1)
[2022-02-26] MEDS ORDERED: Potassium Bicarbonate/Cit Ac 20 MEQ TAB PO SCH (14:30)
[2022-02-26 14:53] VITALS: BP 145/60
[2022-02-27] MEDS: methylPREDNISolone Sod Succ 40 MG VIAL IVP SCH ×3 (00:11→20:12)
[2022-02-27] MEDS: Metoclopramide HCl 10 MG/2 ML VIAL IVP SCH ×5 (00:11→23:01)
[2022-02-27 05:21] LABS: Hemoglobin 13.3 g/dL (12.0-16.0); Mean Corpuscular HGB CONC 29.9 g/dL (32.0-36.0); Mean Corpuscular Hemoglobin 30.2 pg (27.0-31.0); Mean Platelet Volume 9.8 fL (7.4-10.4); Platelet Count 241 10x3/uL (130-400); RBC Distribution Width 13.4 % (11.5-14.5); Red Blood Cell (RBC) Count 4.42 mill/uL (4.20-5.40); White Blood Cell (WBC) Count 14.9 10x3/uL (4.8-10.8)
[2022-02-27 05:38] LABS: Band 5 % (5-11); Lymphocytes 2 % (21-51); MDiff Complete? YES; Monocytes 6 % (0-10); Myelocyte 1 % (0-0); Neutrophil 86 % (42-75)
[2022-02-27 06:25] LABS: Phosphorus 3.7 mg/dL (2.3-4.7)
[2022-02-27 06:27] LABS: ALT (SGPT) 83 U/L (8-55); AST (SGOT) 31 U/L (5-34); Albumin 3.6 g/dL (3.4-4.8); Alkaline Phosphatase 58 U/L (40-110); BUN (Urea Nitrogen) 49 mg/dL (9.8-20.1); Bilirubin, Total 1.2 mg/dL (0.2-1.2); Calc. Creatinine Clearance 138 mL/min (70-130); Calcium 9.3 mg/dL (7.8-10.44); Estimated GFR 98; Globulin 2.8 g/dL (2.4-3.5); Glucose 164 mg/dL (80-115); Magnesium 2.4 mg/dL (1.6-2.6); Protein, Total 6.4 g/dL (5.8-8.1)
[2022-02-27] MEDS: Furosemide 40 MG/4 ML VIAL SLOW IVP SCH ×2 (06:34→14:51)
[2022-02-27] MEDS: HumaLOG 300 UNITS/3 ML VIAL SC PRN ×3 (06:35→11:34)
[2022-02-27] MEDS: Levothyroxine Sodium 88 MCG TAB PER TUBE SCH (06:35)
[2022-02-27 06:36] LABS: Anion Gap 18 mmol/L (10-20); Carbon Dioxide 38 mmol/L (23-31); Chloride 94 mmol/L (98-107); Potassium 3.4 mmol/L (3.5-5.1); Sodium 147 mmol/L (136-145)
[2022-02-27] MEDS: Mometasone 200 MCG/Formoterol 5 MCG 120 PUFF INHALER INH SCH ×2 (06:47→18:31)
[2022-02-27] MEDS: Heparin 5,000 UNITS/ML VIAL SC SCH ×3 (08:24→20:12)
[2022-02-27] MEDS: Thiamine HCl 200 MG/2 ML VIAL SLOW IVP SCH (08:24)
[2022-02-27] MEDS: Famotidine 20 MG TAB PER TUBE SCH ×2 (08:25→20:11)
[2022-02-27] MEDS: Lisinopril 20 MG TAB PO SCH (08:25)
[2022-02-27] MEDS ORDERED: Potassium Chloride 20 MEQ TAB PO SCH (08:45)
[2022-02-27 13:31] LABS: Potassium 3.8 mmol/L (3.5-5.1)
[2022-02-27] MEDS: Senokot 8.6 MG TAB PER TUBE PRN (17:03)
[2022-02-28 04:23] LABS: ALT (SGPT) 72 U/L (8-55); AST (SGOT) 27 U/L (5-34); Albumin 3.4 g/dL (3.4-4.8); Alkaline Phosphatase 52 U/L (40-110); BUN (Urea Nitrogen) 53 mg/dL (9.8-20.1); Bilirubin, Total 1.1 mg/dL (0.2-1.2); Calc. Creatinine Clearance 129 mL/min (70-130); Calcium 9.4 mg/dL (7.8-10.44); Estimated GFR 94; Globulin 2.6 g/dL (2.4-3.5); Glucose 192 mg/dL (80-115)
[2022-02-28 04:32] LABS: Anion Gap 20 mmol/L (10-20); Carbon Dioxide 38 mmol/L (23-31); Chloride 93 mmol/L (98-107); Sodium 147 mmol/L (136-145)
[2022-02-28 05:06] LABS: Hemoglobin 12.9 g/dL (12.0-16.0); Mean Corpuscular HGB CONC 31.2 g/dL (32.0-36.0); Mean Corpuscular Hemoglobin 31.7 pg (27.0-31.0); Mean Platelet Volume 9.7 fL (7.4-10.4); Platelet Count 215 10x3/uL (130-400); RBC Distribution Width 13.1 % (11.5-14.5); Red Blood Cell (RBC) Count 4.07 mill/uL (4.20-5.40); White Blood Cell (WBC) Count 15.4 10x3/uL (4.8-10.8)
[2022-02-28 05:39] LABS: Band 12 % (5-11); Lymphocytes 5 % (21-51); MDiff Complete? YES; Monocytes 6 % (0-10); Neutrophil 77 % (42-75)
[2022-02-28] MEDS: Levothyroxine Sodium 88 MCG TAB PER TUBE SCH (05:43)
[2022-02-28] MEDS: Furosemide 40 MG/4 ML VIAL SLOW IVP SCH ×2 (05:43→13:03)
[2022-02-28] MEDS: Metoclopramide HCl 10 MG/2 ML VIAL IVP SCH ×3 (05:43→18:24)
[2022-02-28] MEDS: Mometasone 200 MCG/Formoterol 5 MCG 120 PUFF INHALER INH SCH ×2 (06:53→18:50)
[2022-02-28] MEDS ORDERED: Polyethylene Glycol 3350 17 GM Packet PO PRN (08:00)
[2022-02-28] MEDS: Heparin 5,000 UNITS/ML VIAL SC SCH ×3 (08:13→22:00)
[2022-02-28] MEDS: methylPREDNISolone Sod Succ 40 MG VIAL IVP SCH ×2 (08:13→21:59)
[2022-02-28] MEDS: Thiamine HCl 200 MG/2 ML VIAL SLOW IVP SCH (08:13)
[2022-02-28] MEDS: Lisinopril 20 MG TAB PO SCH (08:14)
[2022-02-28] MEDS: Famotidine 20 MG TAB PER TUBE SCH ×2 (08:15→21:59)
[2022-02-28] MEDS: Nicotine 14 MG PATCH TD SCH (21:58)
[2022-03-01] MEDS: Metoclopramide HCl 10 MG/2 ML VIAL IVP SCH ×4 (00:57→17:19)
[2022-03-01] MEDS: HumaLOG 300 UNITS/3 ML VIAL SC PRN ×2 (06:21→17:13)
[2022-03-01] MEDS: Furosemide 40 MG/4 ML VIAL SLOW IVP SCH ×2 (06:21→13:44)
[2022-03-01] MEDS: Levothyroxine Sodium 88 MCG TAB PER TUBE SCH (06:22)
[2022-03-01] MEDS: Mometasone 200 MCG/Formoterol 5 MCG 120 PUFF INHALER INH SCH ×2 (07:21→18:37)
[2022-03-01] MEDS: Famotidine 20 MG TAB PER TUBE SCH ×2 (08:44→20:03)
[2022-03-01] MEDS: methylPREDNISolone Sod Succ 40 MG VIAL IVP SCH ×2 (08:44→10:14)
[2022-03-01] MEDS: Lorazepam 2 MG/ML VIAL SLOW IVP PRN (08:44)
[2022-03-01] MEDS: Lisinopril 20 MG TAB PO SCH (08:45)
[2022-03-01] MEDS: Thiamine HCl 200 MG/2 ML VIAL SLOW IVP SCH (08:45)
[2022-03-01] MEDS: Heparin 5,000 UNITS/ML VIAL SC SCH ×3 (08:45→20:03)
[2022-03-01] MEDS: Senokot 8.6 MG TAB PER TUBE PRN (12:23)
[2022-03-01] MEDS: Escitalopram Oxalate 10 mg Tablet PO SCH (12:23)
[2022-03-01] MEDS ORDERED: Diltiazem 125 MG in Sodium Chloride 0.9% 100 ML IVPB SCH (13:15)
[2022-03-01 15:51] VITALS: BMI 38.5
[2022-03-01] MEDS: Nicotine 14 MG PATCH TD SCH (20:04)
[2022-03-01] MEDS ORDERED: Sodium Chloride 0.9% 250 ML IV SCH (22:30)
[2022-03-02] MEDS: Metoclopramide HCl 10 MG/2 ML VIAL IVP SCH ×4 (00:54→18:21)
[2022-03-02] MEDS: Furosemide 40 MG/4 ML VIAL SLOW IVP SCH ×2 (05:30→16:28)
[2022-03-02] MEDS: Levothyroxine Sodium 88 MCG TAB PER TUBE SCH (05:31)
[2022-03-02] MEDS: Mometasone 200 MCG/Formoterol 5 MCG 120 PUFF INHALER INH SCH ×2 (09:53→18:21)
[2022-03-02] MEDS: Thiamine HCl 200 MG/2 ML VIAL SLOW IVP SCH (09:54)
[2022-03-02] MEDS: Lisinopril 20 MG TAB PO SCH (09:54)
[2022-03-02] MEDS: Famotidine 20 MG TAB PER TUBE SCH (09:55)
[2022-03-02] MEDS: methylPREDNISolone Sod Succ 40 MG VIAL IVP SCH (09:55)
[2022-03-02] MEDS: Heparin 5,000 UNITS/ML VIAL SC SCH ×2 (09:55→15:56)
[2022-03-02] MEDS: Escitalopram Oxalate 10 mg Tablet PO SCH (09:55)
[2022-03-02 16:08] VITALS: TEMP 97.9
== END 2022-03-02 18:45 | DRG 870 ==
LOC: ERS 21:12 → CCU 23:36 → IMCU/EMU 02-27 07:49
PROVIDERS: ADMIT Internal Medicine; ATTEND Internal Medicine
PROC: 5A1955Z Respiratory Ventilation, Greater than 96 Consecutive Hours (ICD-10-PCS; principal; 2022-02-18)
PROC: 02HV33Z Insertion of Infusion Device into Superior Vena Cava, Percutaneous Approach (ICD-10-PCS; 2022-02-18)
PROC: 0D9670Z Drainage of Stomach with Drainage Device, Via Natural or Artificial Opening (ICD-10-PCS; 2022-02-18)
PROC: 3E043XZ Introduction of Vasopressor into Central Vein, Percutaneous Approach (ICD-10-PCS; 2022-02-18)
PROC: 0BH17EZ Insertion of Endotracheal Airway into Trachea, Via Natural or Artificial Opening (ICD-10-PCS; 2022-02-18)
DX: A41.9 Sepsis, unspecified organism (principal); J96.22 Acute and chronic respiratory failure with hypercapnia; R65.21 Severe sepsis with septic shock; G93.41 Metabolic encephalopathy; J18.9 Pneumonia, unspecified organism; I50.33 Acute on chronic diastolic (congestive) heart failure; R57.1 Hypovolemic shock; J96.21 Acute and chronic respiratory failure with hypoxia; J44.1 Chronic obstructive pulmonary disease with (acute) exacerbation; N17.9 Acute kidney failure, unspecified; J45.902 Unspecified asthma with status asthmaticus; J44.0 Chronic obstructive pulmonary disease with (acute) lower respiratory infection; I24.8 Other forms of acute ischemic heart disease; I48.3 Typical atrial flutter; Z20.822 Contact with and (suspected) exposure to COVID-19; F31.9 Bipolar disorder, unspecified; E03.9 Hypothyroidism, unspecified; F17.210 Nicotine dependence, cigarettes, uncomplicated; I11.0 Hypertensive heart disease with heart failure; E78.5 Hyperlipidemia, unspecified; E87.5 Hyperkalemia; E88.09 Other disorders of plasma-protein metabolism, not elsewhere classified; F10.10 Alcohol abuse, uncomplicated; Z88.5 Allergy status to narcotic agent; Z88.6 Allergy status to analgesic agent; Z79.890 Hormone replacement therapy; Z79.51 Long term (current) use of inhaled steroids; Z79.899 Other long term (current) drug therapy; Z90.710 Acquired absence of both cervix and uterus; Z98.890 Other specified postprocedural states; Z99.2 Dependence on renal dialysis; Z78.1 Physical restraint status; Z79.52 Long term (current) use of systemic steroids; R73.9 Hyperglycemia, unspecified
CPT/HCPCS: 36415; 36416; 36556; 36600; 71045; 80053; 80202; 80306; 82533; 82550; 82805; 83605; 83735; 83880; 84100; 84145; 84484; 85025; 87040; 93005; 93010; 94002; 94003; 94640; 94644; 94660; 96365; 96366; 96375; J0360; J0692; J1644; J1815; J1940; J2060; J2250; J2405; J2704; J2765; J2920; J3010; J3370; J3411; J3480; J3490; J7030; J7050; J7120; J7611; J7620; P9047; U0002; U0003; U0005